=== PATIENT | female | born 1955 | race Caucasian/White ===

== ENCOUNTER 2024-01-15 20:25 | Emergency (ER) | payer MEDICARE, OTHER, SELFPAY ==
[2024-01-15 20:26] VITALS: BP 146/99
[2024-01-15 22:50] VITALS: BP 149/86
--- NOTE | 2024-01-15 22:52 | ED.GENMED ---
History of Present Illness
General
Chief Complaint: Alcohol Problem
Source: patient, family and ambulance crew
Exam Limitations: none
Time Seen by Provider: 01/15/24 20:41
Nursing documentation reviewed up to this point in time: agreed with except
Travel History
Have you had any contact with someone who has COVID-19?: No
Do you have any symptoms of coronavirus? Fever > 100 degrees, chills, cough, shortness of breath, sore throat, loss of taste or smell, muscle aches, or headache?: No
History of Present Illness
History of Present Illness:
Patient with history of chronic alcohol abuse. According to EMS she called 911 after falling. Brought to ED by EMS for eval. Patient is intoxicated but cooperative. Denies any injures, no visible injuries noted. SHe is requesting to go home.
Past History
Past History
ED Past Medical History: Arrthythmia (Paroxysmal atrial fibrillation, SVT), CAD, Cancer (Breast), GERD, HTN, [place], Psychiatric (Anxiety, depression, alcohol abuse, benzodiazepine abuse) and Other (Ulcers, PE, Left shoulder fracture, GI bleeding)
ED Past Surgical History: Appendectomy, Orthopedic (right arm surgery. Left elbow), Tonsilectomy and Other ([place] teeth extraction and left arm surgery, Partial mastectomy for CA)
Social History
Tobacco: Non-smoker
Alcohol: Chronic alcoholic (Wine 3 bottles daily)
Drug: Other (Benzodiazepine abuse)
Personal:
Living: with family (Significant other)
Employment: Not employed
Family History
Family History: Other (MS and hypertension)
Review of Systems
Review of Systems
Allergies reviewed?: Yes
All Other Systems: ROS reviewed and negative except as documented in HPI and ROS
Constitutional: Reports other (intoxicated)
EENT: Reports no symptoms
Respiratory: Reports no symptoms
Cardiac: Reports no symptoms
ABD/GI: Reports no symptoms
: Reports no symptoms
Musculoskeletal: Reports no symptoms
Skin: Reports no symptoms
Neurological: Reports no symptoms
Psychiatric: Reports no symptoms
Phy Exam
General Physical Exam
General Presentation: well appearing and no apparent distress
General age: appears stated age
General Skin: warm and dry
General Habitus: normal
General Mental: alert
Neurological Exam
Neurological Exam: alert, oriented x3, no motor deficits, no sensory deficits, appears intoxicated and normal gait
Valeri Coma Scale
Eye Opening: Spontaneous
Verbal Response: Oriented
Motor Response: Obeys Commands
GCS Total Score: 15
Musculoskeletal Exam
Musculoskeletal Exam: full ROM
Skin Exam
Skin Exam: normal color, warm/dry and no rash
Psychiatric Exam
Psychiatric Exam: normal mood/affect
Scores
Withdrawal Assessment of Alcohol
Withdrawal Assessment Completed?: Not applicable
Course
Orders/Labs/Results
Orders:
Orders
01/15/24 22:48
Clonazepam [Klonopin] 0.5 mg PO NOW STA
01/15/24 22:51
Metoprolol [Lopressor] 100 mg PO NOW STA
Vital Signs
Initial and Last Documented VS:
Initial Vital Signs
Pulse Resp BP Pulse Ox
80 18 146/99 94
01/15/24 20:26 01/15/24 20:26 01/15/24 20:26 01/15/24 20:26
Last Documented Vital Signs
Pulse Resp BP Pulse Ox
84 18 149/86 94
01/15/24 22:50 01/15/24 20:26 01/15/24 22:50 01/15/24 20:26
*Critical Care Note
Total Time (30-74mins, 75-104mins- exclusive of procedures): Not Applicable
Update Note
Update Note:
Patient ambulating with PCT without difficulty. Patients son in law will be taking patient home. Family friend will be staying with patient tonight
ED Attending Note
-
Portions of this chart may have been created with voice recognition software.� Occasional wrong word or��sound alike� substitutions may have occurred due to the inherent limitations of voice recognition software.
Discharge Plan
Departure
Patient Disposition: Home (Routine Discharge)
Date of Disposition: 01/15/24
Time of Disposition: 22:26
Patient with high blood pressure during this ER visit?: No
Condition: Good
Covid-19: Not Applicable
Discharge Problem:
Chronic alcohol abuse
Instructions: Preventing falls in adults, Alcohol Use Disorder (DC)
Prescriptions:
No Action
clonidine HCl 0.2 MG tablet
0.2 mg PO TID
Patient Comments:
pt states she in non compliant with taking medication
clonazepam 0.5 mg tablet
0.5 mg PO TID
anastrozole 1 mg tablet
1 mg PO DAILY
metoprolol tartrate 100 mg Tablet
200 mg PO BID Qty: 30 0RF
Rx Instructions:
new dose
thiamine HCl (vitamin B1) 100 mg Tablet
100 mg PO BID Qty: 60 0RF
pantoprazole 40 mg Tablet,Delayed Release (Dr/Ec)
40 mg PO BID Qty: 60 0RF
folic acid 1 mg Tablet
1 mg PO DAILY Qty: 60 0RF
Referrals:
UNKNOWN - PT DOES,NOT KNOW [Family Provider] -
Interventions
Interventions:
*Risk Screen - Suicide Last Done: 01/15/24 20:28
*General Assessment Last Done: 01/15/24 20:32
*Neglect/Abuse Screening Last Done: 01/15/24 20:28
ED- Fall Risk Assessment Last Done: 01/15/24 20:27
*ED COVID-19 Vaccine History Last Done: 01/15/24 20:31
*Nursing Disposition Last Done: 01/15/24 23:11
ED- Neurological Assessment Last Done: 01/15/24 20:33
ED-Psychological Assessment Last Done: 01/15/24 20:33
Discharge Date and Time
Discharge Date/Time: 01/15/24 23:12
Print Language: ITALIAN
[2024-01-15] MEDS: LOPRESSOR 100 MG PO (22:54)
[2024-01-15] MEDS: KLONOPIN 0.5 MG PO (22:55)
== END 2024-01-15 23:12 | disposition home or self-care (01) ==
LOC: EMR 20:25
PROVIDERS: EMERGENCY PHYSICIAN Emergency Medicine
DX: F10.10 Alcohol abuse, uncomplicated (principal); I48.0 Paroxysmal atrial fibrillation; I47.10 Supraventricular tachycardia, unspecified; I25.10 Atherosclerotic heart disease of native coronary artery without angina pectoris; K21.9 Gastro-esophageal reflux disease without esophagitis; I10 Essential (primary) hypertension; I25.2 Old myocardial infarction; F41.8 Other specified anxiety disorders
CPT/HCPCS: 99282

== ENCOUNTER 2024-07-03 09:37 | Inpatient (IN) | payer MEDICARE, OTHER, SELFPAY ==
[2024-06-29] VITALS (18 sets, daily range): BP systolic 141–178; BP diastolic 78–112; BMI 29.8
--- NOTE | 2024-06-29 16:06 | ED.GENMED ---
History of Present Illness
<Mima Johnson PA-C - Last Filed: 06/29/24 20:53>
General
Chief Complaint: Musculo-Skeletal Complaint
Source: patient and ambulance crew
Time Seen by Provider: 06/29/24 16:02
History of Present Illness
History of Present Illness:
69yoF with a history of atrial fibrillation, hypertension, anemia, and alcohol use disorder presenting via EMS for evaluation after a fall. Patient was getting out of the car <1 hour prior to arrival when she lost her footing and tripped. Patient
reports having a recent patellar fracture and she was just taken out of her brace. Her legs have been weak since then and she believes this is what caused her to fall. She landed on her right side injuring her right shoulder. No reported LOC or head
strike. EMS reports that patient was visibly intoxicated at the scene. She admits to drinking 2 cocktails at lunch today.
Past History
<Mima Johnson PA-C - Last Filed: 06/29/24 20:53>
Past History
ED Past Medical History: Arrthythmia (Paroxysmal atrial fibrillation, SVT), CAD, Cancer (Breast), GERD, HTN, [place], Psychiatric (Anxiety, depression, alcohol abuse, benzodiazepine abuse) and Other (Ulcers, PE, Left shoulder fracture, GI bleeding)
ED Past Surgical History: Appendectomy, Orthopedic (right arm surgery. Left elbow), Tonsilectomy and Other ([place] teeth extraction and left arm surgery, Partial mastectomy for CA)
Social History
Tobacco: Non-smoker
Alcohol: Chronic alcoholic (Wine 3 bottles daily)
Drug: Other (Benzodiazepine abuse)
Personal:
Living: with family (Significant other)
Employment: Not employed
Family History
Family History: Other (MS and hypertension)
Phy Exam
<Mima Johnson PA-C - Last Filed: 06/29/24 20:53>
Physical Exam
Physical Exam:
Dirt noted to face/mouth. Patient intoxicated although alert
General Physical Exam
General Skin: warm and dry
General Habitus: elderly
General Mental: alert
ENT Exam
ENT Exam: normocephalic
Eye Exam
Eye Exam: PERRL
Cardiovascular Exam
Cardiovascular Exam: regular rate/rhythm
Pulmonary Exam
Pulmonary Exam: lungs clear, no respiratory distress, no rales, chest non tender, no crackles and no rhonchi
Gastrointestinal Exam
Gastrointestinal Exam: non tender, soft and non distended
Neurological Exam
Neurological Exam: alert
Valeri Coma Scale
Eye Opening: Spontaneous
Verbal Response: Oriented
Motor Response: Obeys Commands
GCS Total Score: 15
Mental
Mental Status: appears min intoxicated
Musculoskeletal Exam
Musculoskeletal Exam: other (+Deformity to R shoulder. Patient unable to range joint 2/2 pain. 2+ radial pulse. )
Skin Exam
Skin Exam: warm/dry
Psychiatric Exam
Psychiatric Exam: normal mood/affect
Course
<Mima Johnson PA-C - Last Filed: 06/29/24 20:53>
Orders/Labs/Results
Orders:
Orders
06/29/24 16:03
Electrocardiogram (*1) Urgent
Reason for Study: Fatigue / Weakness
CT Cervical Spine W/o Iv Contr Urgent
Comment:
Reason For Exam: Fall, intoxication
EKG- Treatment ONCE
CR Humerus - Right Min 2 View* Urgent
Comment:
Reason For Exam: injury
CR Shoulder, Trauma - Right Urgent
Reason For Exam: injury
06/29/24 16:04
CT Head W/o Iv Contrast Urgent
Comment:
Reason For Exam: Fall, intoxication
06/29/24 17:12
Alcohol Urgent
Complete Blood Count/With Diff Urgent
Comprehensive Metabolic Panel Urgent
Magnesium Urgent
Troponin I Urgent
06/29/24 17:23
HYDROmorphone [Dilaudid] 0.5 mg IV NOW STA
06/29/24 17:24
Add On- LAB Urgent
Tests Added?: magnesium
06/29/24 17:32
Propofol [Diprivan] 100 mg IV NOW STA
06/29/24 17:33
ASA Classification Routine
06/29/24 19:31
Shoulder, Right, Trauma [CR Shoulder, Trauma - Right] Urgent
Comment:
Reason For Exam: R shoulder reduction
06/29/24 20:08
CT Upper Ext W/o Iv Cont Rt Urgent
Comment:
Reason For Exam: R shoulder fracture/dislocation
06/29/24 20:09
HYDROmorphone [Dilaudid] 0.5 mg IV NOW STA
Abnormal Lab Results
06/29/24
17:12
RBC 3.75 L 10^6/uL
(4.20-5.40)
MCV 106.4 H fL
(81.0-99.0)
MCH 36.8 H pg
(27.0-31.0)
RDW 14.7 H %
(11.5-14.5)
Absolute Neuts (auto) 6.9 H 10^3/uL
(1.4-6.5)
Absolute Monos (auto) 0.8 H 10^3/uL
(0.1-0.6)
Lymphocytes % 17.0 L %
(20.5-51.1)
Carbon Dioxide 20 L mmol/L
(22-30)
Glucose 108 H mg/dl
(70-99)
AST 70 H U/L
(14-36)
ALT 68 H U/L
(0-35)
06/29/24 17:12
06/29/24 17:12
Vital Signs
Initial and Last Documented VS:
Initial Vital Signs
Temp Pulse Resp BP Pulse Ox
97.7 F 89 16 155/112 98
06/29/24 16:02 06/29/24 16:02 06/29/24 16:02 06/29/24 16:02 06/29/24 16:02
Last Documented Vital Signs
Temp Pulse Resp BP Pulse Ox
97.9 F 90 16 156/78 97
06/29/24 20:10 06/29/24 20:10 06/29/24 20:10 06/29/24 20:10 06/29/24 20:10
<Don Chauhan, DO - Last Filed: 06/29/24 17:29>
Orders/Labs/Results
Orders:
Orders
06/29/24 16:03
Electrocardiogram (*1) Urgent
Reason for Study: Fatigue / Weakness
CT Cervical Spine W/o Iv Contr Urgent
Comment:
Reason For Exam: Fall, intoxication
EKG- Treatment ONCE
CR Humerus - Right Min 2 View* Urgent
Comment:
Reason For Exam: injury
CR Shoulder, Trauma - Right Urgent
Reason For Exam: injury
06/29/24 16:04
CT Head W/o Iv Contrast Urgent
Comment:
Reason For Exam: Fall, intoxication
06/29/24 17:12
Alcohol Urgent
Complete Blood Count/With Diff Urgent
Comprehensive Metabolic Panel Urgent
Magnesium Urgent
Troponin I Urgent
06/29/24 17:23
HYDROmorphone [Dilaudid] 0.5 mg IV NOW STA
06/29/24 17:24
Add On- LAB Urgent
Tests Added?: magnesium
06/29/24 17:32
Propofol [Diprivan] 100 mg IV NOW STA
06/29/24 17:33
ASA Classification Routine
06/29/24 19:31
Shoulder, Right, Trauma [CR Shoulder, Trauma - Right] Urgent
Comment:
Reason For Exam: R shoulder reduction
06/29/24 20:08
CT Upper Ext W/o Iv Cont Rt Urgent
Comment:
Reason For Exam: R shoulder fracture/dislocation
06/29/24 20:09
HYDROmorphone [Dilaudid] 0.5 mg IV NOW STA
Abnormal Lab Results
06/29/24
17:12
RBC 3.75 L 10^6/uL
(4.20-5.40)
MCV 106.4 H fL
(81.0-99.0)
MCH 36.8 H pg
(27.0-31.0)
RDW 14.7 H %
(11.5-14.5)
Absolute Neuts (auto) 6.9 H 10^3/uL
(1.4-6.5)
Absolute Monos (auto) 0.8 H 10^3/uL
(0.1-0.6)
Lymphocytes % 17.0 L %
(20.5-51.1)
Carbon Dioxide 20 L mmol/L
(22-30)
Glucose 108 H mg/dl
(70-99)
AST 70 H U/L
(14-36)
ALT 68 H U/L
(0-35)
06/29/24 17:12
06/29/24 17:12
Vital Signs
Initial and Last Documented VS:
Initial Vital Signs
Temp Pulse Resp BP Pulse Ox
97.7 F 89 16 155/112 98
06/29/24 16:02 06/29/24 16:02 06/29/24 16:02 06/29/24 16:02 06/29/24 16:02
Last Documented Vital Signs
Temp Pulse Resp BP Pulse Ox
97.9 F 90 16 156/78 97
06/29/24 20:10 06/29/24 20:10 06/29/24 20:10 06/29/24 20:10 06/29/24 20:10
<Romel Mckeon, DO - Last Filed: 06/29/24 19:35>
Orders/Labs/Results
Orders:
Orders
06/29/24 16:03
Electrocardiogram (*1) Urgent
Reason for Study: Fatigue / Weakness
CT Cervical Spine W/o Iv Contr Urgent
Comment:
Reason For Exam: Fall, intoxication
EKG- Treatment ONCE
CR Humerus - Right Min 2 View* Urgent
Comment:
Reason For Exam: injury
CR Shoulder, Trauma - Right Urgent
Reason For Exam: injury
06/29/24 16:04
CT Head W/o Iv Contrast Urgent
Comment:
Reason For Exam: Fall, intoxication
06/29/24 17:12
Alcohol Urgent
Complete Blood Count/With Diff Urgent
Comprehensive Metabolic Panel Urgent
Magnesium Urgent
Troponin I Urgent
06/29/24 17:23
HYDROmorphone [Dilaudid] 0.5 mg IV NOW STA
06/29/24 17:24
Add On- LAB Urgent
Tests Added?: magnesium
06/29/24 17:32
Propofol [Diprivan] 100 mg IV NOW STA
06/29/24 17:33
ASA Classification Routine
06/29/24 19:31
Shoulder, Right, Trauma [CR Shoulder, Trauma - Right] Urgent
Comment:
Reason For Exam: R shoulder reduction
06/29/24 20:08
CT Upper Ext W/o Iv Cont Rt Urgent
Comment:
Reason For Exam: R shoulder fracture/dislocation
06/29/24 20:09
HYDROmorphone [Dilaudid] 0.5 mg IV NOW STA
Abnormal Lab Results
06/29/24
17:12
RBC 3.75 L 10^6/uL
(4.20-5.40)
MCV 106.4 H fL
(81.0-99.0)
MCH 36.8 H pg
(27.0-31.0)
RDW 14.7 H %
(11.5-14.5)
Absolute Neuts (auto) 6.9 H 10^3/uL
(1.4-6.5)
Absolute Monos (auto) 0.8 H 10^3/uL
(0.1-0.6)
Lymphocytes % 17.0 L %
(20.5-51.1)
Carbon Dioxide 20 L mmol/L
(22-30)
Glucose 108 H mg/dl
(70-99)
AST 70 H U/L
(14-36)
ALT 68 H U/L
(0-35)
06/29/24 17:12
06/29/24 17:12
Vital Signs
Initial and Last Documented VS:
Initial Vital Signs
Temp Pulse Resp BP Pulse Ox
97.7 F 89 16 155/112 98
06/29/24 16:02 06/29/24 16:02 06/29/24 16:02 06/29/24 16:02 06/29/24 16:02
Last Documented Vital Signs
Temp Pulse Resp BP Pulse Ox
97.9 F 90 16 156/78 97
06/29/24 20:10 06/29/24 20:10 06/29/24 20:10 06/29/24 20:10 06/29/24 20:10
Procedures
<Romel Mckeon, DO - Last Filed: 06/29/24 19:35>
Moderate Sedation
ASA Risk Score: Class II
Chart and allergies reviewed: Yes
Consent for anesthesia obtained: Yes
Time out completed (validating right patient & procedure): Yes
Moderate Sedation Start Time(when first medication is given): 19:27
History of difficult intubation: No
Airway free of obstruction: Yes
Patient has a gag reflex: Yes
Patient is able to open mouth: Yes
Patient has no dentures: Yes
Patient has no loose teeth: Yes
Medication administered by Provider during Moderate Sedation: IV Propofol (mg)
Total dose administered: 75
Time drug administered: 19:27
Moderate Sedation Procedure End Time: 19:37
Joint/Fracture Reduction
Right Anterior Shoulder:
Indication for procedure:: R shoulder fracture and dislocation
Procedure completed by: Mima Johnson PA-C
Consent form signed: Yes
Joint reduced: with anesthesia sedation
Injury was: closed
Further treatement: needs further treatment
Post reduction exam: stable
Capillary Refill: normal
Peripheral Pulses: radial (right): 2+
<Mima Johnson PA-C - Last Filed: 06/29/24 20:53>
MDM/Problems Addressed
Differential Diagnosis Includes:
69yoF here after a fall getting out of car today. C/o R shoulder pain and deformity noted on exam. VSS. She is intoxicated on arrival although alert. Differential diagnosis includes but is not limited to: fracture, dislocation, mechanical fall,
failure to thrive, dehydration
Initial ED plan: Check cardiac labs, EKG, right shoulder/humerus x-rays, CT head, and CT cervical spine.
MDM: X-rays of R shoulder reveal a comminuted fracture of the proximal R humerus with accompanying anterior/inferior shoulder dislocation. Moderate sedation performed by Dr. Mckeon and joint reduced as above. X-rays show improved alignment although
dislocation persists. X-rays sent to orthopedics (Dr. Tam) who recommends sling and outpatient f/u tomorrow. Patient initially put up for discharge. Patient lives alone and is unable to ambulate currently. She is requesting admission. Patient
also requiring multiple doses of Dilaudid for pain control. Will admit for further management.
<Mima Johnson PA-C - Last Filed: 06/29/24 20:53>
*Critical Care Note
Total Time (30-74mins, 75-104mins- exclusive of procedures): Not Applicable
<Don Chauhan, DO - Last Filed: 06/29/24 17:29>
Update Note
Update Note:
5:30 PM patient tells me she would like to go to rehab but not till Wednesday she has a bed at [facility] she is not interested in speaking to anyone else this evening
<Romel Mckeon, DO - Last Filed: 06/29/24 19:35>
Update Note
Update Note:
5:30 PM patient tells me she would like to go to rehab but not till Wednesday she has a bed at [facility] she is not interested in speaking to anyone else this evening
7:30 PM care of patient was transitioned pending moderate sedation and reduction. Patient tolerated propofol sedation well and the right shoulder was reduced without difficulty.
ED Attending Note
<Mima Johnson PA-C - Last Filed: 06/29/24 20:53>
-
Portions of this chart may have been created with voice recognition software.� Occasional wrong word or��sound alike� substitutions may have occurred due to the inherent limitations of voice recognition software.
<Don Chauhan, DO - Last Filed: 06/29/24 17:29>
ED Attending Note
Patient seen and examined by attending physician: Yes
I performed the substantive portion of visit, reviewed & personally made and approve the management plan that is documented in note by myself or KRISTEN.: Yes
ED Attending Note:
Seen with PA examined independently patient noted for prior visits alcoholic, fell struck her right shoulder looks like a fracture dislocation CT of the head and neck have been ordered, reviewed with patient she will require reduction here
Discharge Plan
Departure
Patient Disposition: Admit
Date of Disposition: 06/29/24
Time of Disposition: 20:43
Presentation/result/management discussed w/ accepting MD/DO: Hospitalist
Patient with high blood pressure during this ER visit?: Yes
Discharge Problem:
Closed fracture dislocation of right shoulder, Fall from slip, trip, or stumble, Alcohol intoxication
Instructions: Upper Arm Fracture ED, MODERATE SEDATION ADULT
Prescriptions:
No Action
clonidine HCl 0.2 MG tablet
0.2 mg PO TID
Patient Comments:
pt states she in non compliant with taking medication
anastrozole 1 mg tablet
1 mg PO DAILY
metoprolol tartrate 100 mg Tablet
200 mg PO BID Qty: 30 0RF
Rx Instructions:
new dose
chlordiazepoxide HCl 5 mg Capsule
5 mg PO TID
Patient Comments:
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
Referrals:
UNKNOWN - PT DOES,NOT KNOW [Family Provider] -
Interventions
Interventions:
*Risk Screen - Suicide Last Done: 06/29/24 16:02
*General Assessment Last Done: 06/29/24 16:02
*Neglect/Abuse Screening Last Done: 06/29/24 16:02
ED- Fall Risk Assessment Last Done: 06/29/24 17:33
*ED COVID-19 Vaccine History Last Done: 06/29/24 17:33
ED-Musculoskeletal Assessment Last Done: 06/29/24 17:33
Discharge Date and Time
Print Language: KAZAKH
[2024-06-29 17:17] LABS: % Basophils 0.4 % (0-2); % Immature Granulocytes 0.3 % (0-0.5); % Monocytes 7.9 % (1.7-9.3); % Neutrophils 71.4 % (42.2-75.2); Absolute Eosinophils 0.3 10^3/uL (0-0.7); Absolute Lymphocytes 1.6 10^3/uL (1.2-3.4); Absolute Monocytes 0.8 10^3/uL (0.1-0.6); Absolute Neutrophils 6.9 10^3/uL (1.4-6.5); Hematocrit 39.9 % (37.0-47.0); Hemoglobin 13.8 g/dL (12.0-16.0); Mean Corp Hgb Conc. 34.6 g/dL (33.0-37.0); Mean Corpuscular Hgb 36.8 pg (27.0-31.0); Mean Corpuscular Volume 106.4 fL (81.0-99.0); Mean Platelet Volume 8.8 fL (7.4-10.4); Nucleated Red Blood Cells % 0 %; Platelet Count 266 10^3/uL (130-400); Red Blood Cell Count 3.75 10^6/uL (4.20-5.40); Red Cell Dist. Width 14.7 % (11.5-14.5); White Blood Cell Count 9.6 10^3/uL (4.8-10.8)
[2024-06-29 17:38] LABS: ALT (SGPT) 68 U/L (0-35); AST (SGOT) 70 U/L (14-36); Albumin 4.4 g/dl (3.5-5.0); Alcohol 190 mg/dl; Alkaline Phosphatase 71 U/L (38-126); Blood Urea Nitrogen 10 mg/dl (7-17); Calcium 9.1 mg/dl (8.4-10.2); Carbon Dioxide 20 mmol/L (22-30); Chloride 101 mmol/L (98-107); Glucose 108 mg/dl (70-99); Magnesium 2.1 mg/dl (1.6-2.3); Potassium 5.1 mmol/L (3.5-5.1); Sodium 137 mmol/L (135-145); Total Bilirubin 0.3 mg/dl (0.2-1.3); Total Protein 6.8 g/dl (6.3-8.2); eGFR > 60.00
[2024-06-29 17:41] LABS: Troponin I < 0.012 ng/ml
[2024-06-29] MEDS: DILAUDID 0.5 MG IV ×2 (18:40→20:38)
[2024-06-29] MEDS: DIPRIVAN 75 MG IV (19:27)
--- NOTE | 2024-06-29 21:26 | HPS.HSE ---
Family Physician
-
Family Physician: NOT KNOW UNKNOWN - PT DOES
Chief Complaint
-
fall
History of Present Illness
69-year-old female past medical history of SVT, PE, CAD, breast cancer, hypertension, GERD, anxiety/depression, alcohol use disorder, benzodiazepine abuse, GI bleeding, presenting for evaluation for fall. She was getting out of the car under 1 hour
prior to arrival when she lost her footing and tripped.
She reports recently having a left patellar fracture in March and recently her brace was removed. Legs have been weak since then which she believes is the reason for her fall. She landed on her right side injuring her right shoulder. Denies loss
of consciousness or head strike. EMS noted that she was visibly intoxicated at the scene. She admits to drinking 2 glasses of wine at lunch today. She has been ambulating with walker. She does feel anxious and a little tremulous especially
because she has not taken her medications today.
She denies smoking.
Medical History
Past Medical History
Past Medical History: Reports Other (SVT, PE, CAD, breast cancer, hypertension, GERD, anxiety/depression, alcohol use disorder, benzodiazepine abuse, GI bleeding,)
Past Surgical History: Reports Other (Appendectomy, Orthopedic (right arm surgery. Left elbow), Tonsilectomy and Other ([place] teeth extraction and left arm surgery, Partial mastectomy for CA))
Social History
Tobacco: Non-smoker
Alcohol: Daily
Drug: None
Family History
Family History: Not pertinent
Allergies / Home Medications
Allergies reflects when Allergies were last updated in [employer].
Home Medications with original date entered in [employer]
Allergy/Medication List:
Allergies
Allergy/AdvReac Type Severity Reaction Status Date / Time
apixaban [From Eliquis] Allergy Rash Verified 06/08/23 01:12
haloperidol lactate Allergy tongue Verified 06/08/23 01:12
[From Haldol] swelled
quetiapine [From Seroquel] AdvReac weakness Verified 06/08/23 01:12
Home Medications
clonidine HCl 0.2 mg tablet 0.2 mg PO TID Blood pressure 04/08/20
anastrozole 1 mg tablet 1 mg PO DAILY Cancer 06/08/23
metoprolol tartrate 100 mg tablet 200 mg (2 x 100 mg) PO BID #30 tabs 06/13/23
chlordiazepoxide HCl 5 mg capsule 5 mg PO TID 06/29/24
Review of Systems
-
History Source: Patient
A 12 point ROS was completed and negative except as noted: Yes
Constitutional: Reports No Symptoms
EENT: Reports No Symptoms
Respiratory: Reports No Symptoms
Cardiac: Reports No Symptoms
Abdomen/GI: Reports No Symptoms
: Reports No Symptoms
Musculoskeletal: Reports See HPI
Skin: Reports No Symptoms
Neurological: Reports No Symptoms
Endocrine: Reports No Symptoms
Hematologic/Lymphatic: Reports No Symptoms
Psych: Reports No Symptoms
Physical Exam
Vital Signs
Vital Signs
Temp Pulse Resp BP Pulse Ox
97.9 F 90 16 156/78 97
06/29/24 20:10 06/29/24 20:10 06/29/24 20:10 06/29/24 20:10 06/29/24 20:10
Physical Exam
General: Well Developed, Well Nourished and No Apparent Distress
HEENT: NormoCephalic, Moist mucous membranes and Atraumatic
Respiratory: Clear
Cardiac: S1/S2 and Regular Rhythm; No Murmur or Rub
GI: Soft, Non Tender, Non Distended and Normal Bowel Sounds; No Organomegaly
Rectal: Deferred by Provider
Musculoskeletal: No Clubbing, No Cyanosis and No Edema
Skin: No Rash
Neuro: Nonfocal/grossly intact
Laboratory Results
-
06/29/24 17:12
06/29/24 17:12
Laboratory Results
Total Bilirubin 0.3 mg/dl (0.2-1.3) 06/29/24 17:12
AST 70 U/L (14-36) H 06/29/24 17:12
ALT 68 U/L (0-35) H 06/29/24 17:12
Alkaline Phosphatase 71 U/L (38-126) 06/29/24 17:12
Troponin I < 0.012 ng/ml 06/29/24 17:12
Data Reviewed
-
Lab Data: Labs Reviewed by me
Old Records: Reviewed
Impression/Plan
-
IMPRESSION:
PLAN:
# Right shoulder dislocation/proximal humerus fracture
-Shoulder x-ray shows comminuted fracture/dislocation of the proximal right humerus
-CT pending
-Reduction attempted with some improvement but joint still dislocated
-Ortho consulted and recommended outpatient follow-up however patient unable to ambulate and requires multiple doses of Dilaudid
-Continue Dilaudid but increase to 1 mg every 4, Tylenol
# Alcohol withdrawal
# Alcohol use disorder
# History of benzodiazepine abuse
-Alcohol level 190
-Thiamine and folate
-Alcohol withdrawal protocol
-Continue chlordiazepoxide, clonidine
# Transaminitis secondary to alcohol use
-Continue to monitor
History of SVT
-Continue metoprolol
History of PE
CAD
Breast cancer
-Continue anastrozole
Essential hypertension
GERD
Anxiety/depression
History of GI bleeding
Full code
DVT prophylaxis�heparin
Regular diet
[2024-06-29] MEDS: LOPRESSOR 200 MG PO (21:33)
[2024-06-29] MEDS: CATAPRES 0.2 MG PO (21:34)
--- NOTE | 2024-06-29 23:15 | PTCARENOTE ---
Pt arrived onto floor @2315. Pt AAOx3 and a pin puller to the bed. Pt with no complaints of SOB at this time, complaining of 8/10 pain in R arm. PRN Dilaudid administered. Pt oriented to room and call posey; will continue to monitor.
[2024-06-29] MEDS: DILAUDID 1 MG IV (23:41)
[2024-06-29] MEDS: NSS 1000 IV (23:42)
[2024-06-29] MEDS: LIBRIUM 5 MG PO (23:53)
[2024-06-30] VITALS (7 sets, daily range): BP systolic 99–130; BP diastolic 58–79; O2SAT 94
[2024-06-30] MEDS: ZOFRAN 4 MG IV (01:54)
[2024-06-30] MEDS: DILAUDID 1 MG IV (05:12)
--- NOTE | 2024-06-30 06:58 | CON.ORTHO ---
Consultation
-
Date/Time Consultation Requested: 06/29/2024 @ 23:12
Date/Time Consultation Performed: 06/30/2024 @ 6:40 AM
Requesting Provider: Abrahan Webb MD
Performing Provider: Tyrone Paul PA-C for Dr. Jorge Tam
Reason for Consultation: Right Proximal Humerus Fracture/Dislocation
Consultation - Orthopedics
History
HPIL The patient is a 69-year-old [id number] female with a past medical history significant for SVT, PE, CAD, breast cancer, hypertension, GERD, anxiety/depression, alcohol use disorder, benzodiazepine abuse, GI bleeding, admitted to ""[facility] following a mechanical fall yesterday evening. Patient reports that she was getting out of the car approximately 1 hour prior to her arrival when she lost her balance/footing, tripped and fell onto her right shoulder. The
patient has been rehabbing from a left patellar fracture which she sustained this past March. She was recently seen in our office as an outpatient and was transitioned from knee immobilizer to post-op range of motion brace with initiation of
outpatient physical therapy for progressive range of motion. She reports that her legs have been weak since her patella fracture, which she feels as though contributed to her fall. She denies any loss of consciousness or head strike. Per H&P, EMS
noted that she was visibly intoxicated at the scene. X-rays were obtained in the ED, which revealed a comminuted fracture/dislocation of the right proximal humerus. She denies any paresthesias. Orthopedics has been consulted for further
management.
PAST MEDICAL HISTORY: SVT, PE, CAD, breast cancer, hypertension, GERD, anxiety/depression, alcohol use disorder, benzodiazepine abuse, GI bleeding.
PAST SURGICAL HISTORY: Appendectomy, tonsillectomy, partial mastectomy for CA, Orthopedic (right arm surgery, left elbow surgery).
SOCIAL HISTORY: Denies tobacco use. Daily EtOH use.
FAMILY HISTORY: Non-contributory.
REVIEW OF SYSTEMS: 12-point review of systems obtained and negative except those mentioned in the HPI.
Allergies / Home Medications
Allergy/AdvReac Type Severity Reaction Status Date / Time
apixaban [From Eliquis] Allergy Rash Verified 06/08/23 01:12
haloperidol lactate Allergy tongue Verified 06/08/23 01:12
[From Haldol] swelled
quetiapine [From Seroquel] AdvReac weakness Verified 06/08/23 01:12
�Medication �Instructions �Recorded
clonidine HCl 0.2 mg tablet 0.2 mg PO TID Blood pressure 04/08/20
anastrozole 1 mg tablet 1 mg PO DAILY Cancer 06/08/23
metoprolol tartrate 100 mg tablet 200 mg (2 x 100 mg) PO BID #30 tabs 06/13/23
chlordiazepoxide HCl 5 mg capsule 5 mg PO TID 06/29/24
Vital Signs / Lab Results
Temp Pulse Resp BP Pulse Ox
98.1 F 82 18 119/78 94
06/30/24 02:55 06/30/24 02:55 06/30/24 02:55 06/30/24 02:55 06/30/24 02:55
RADIOGRAPHIC FINDINGS:
CR Shoulder, Trauma - RIGHT, CR Humerus - RIGHT Min 2 View* was obtained at [facility] on 06/29/2024 and was made available for my review today. Findings and Impression: There is a comminuted fracture of the head/neck of the proximal right
humerus with accompanying anterior and inferior dislocation with respect to the glenoid portion of the scapula.
CR Shoulder, Trauma - RIGHT (after attempted reduction) was obtained at [facility] on 06/29/2024 and was made available for my review today. Findings and Impression: 2 portable views of the right shoulder again reveal a comminuted
fracture/dislocation of the proximal right humerus with respect to the glenoid portion of the scapula. Although there is some decreased splaying of several small fracture fragments, continued anterior and inferior dislocation of the proximal right
humerus with respect to the glenoid is noted.
CT Upper Ext W/o Iv Cont RT was also obtained at [facility] on 06/29/2024 and was made available for my review today. Report is not yet available. CT Scan was reviewed with Dr. Shin. There is a comminuted fracture of the head/neck of the
proximal humerus. I do not appreciate any dislocation on CT scan; humeral head appears to be appropriately positioned in relation to the glenoid.
PHYSICAL EXAM:
General: Well-developed, well-nourished and in no apparent distress.
HEENT: NCAT, sclerae anicteric, normal hearing.
Heart: No JVD.
Lungs: Normal work of breathing on room air.
MSK: Directed exam of the right upper extremity, with attention to the right shoulder, is limited secondary to fracture status. Skin intact. There is tenderness to palpation over the right proximal humerus. No obvious deformity appreciated.
Sling intact. Range of motion deferred secondary to known fracture. Able to wiggle fingers. Sensation is intact to light touch over the axillary nerve distribution and capillary refill is less than 2 seconds.
Assessment / Plan
ASSESSMENT: 69-year-old [id number] female with a comminuted fracture of the head/neck of the right proximal humerus. Reviewing CT scan, humeral head appears to be appropriately positioned in relation to the glenoid.
PLAN:
1) Thankfully, at this time, her fracture is amenable to non-operative treatment. X-rays and CT scan reviewed with Dr. Shin.
2) Continue with sling immobilization at all times, NWB to RUE.
3) Pain control per primary team.
4) Recommend serial radiographs in 1 week as outpatient to ensure maintained alignment/position.
5) Orthopedic surgery will sign off at this time. Please reengage with any further questions or concerns.
[2024-06-30 07:25] LABS: ALT (SGPT) 48 U/L (0-35); AST (SGOT) 41 U/L (14-36); Albumin 3.2 g/dl (3.5-5.0); Alkaline Phosphatase 47 U/L (38-126); Blood Urea Nitrogen 13 mg/dl (7-17); Calcium 8.2 mg/dl (8.4-10.2); Carbon Dioxide 21 mmol/L (22-30); Chloride 105 mmol/L (98-107); Estimated Creatinine Clearance 89 ml/min; Glucose 108 mg/dl (70-99); Potassium 4.8 mmol/L (3.5-5.1); Sodium 134 mmol/L (135-145); Total Bilirubin 0.9 mg/dl (0.2-1.3); Total Protein 5.5 g/dl (6.3-8.2); eGFR > 60.00
[2024-06-30] MEDS: THIAMINE INJECTION 200 MG IV ×2 (08:39→20:44)
[2024-06-30] MEDS: LIBRIUM 5 MG PO ×3 (08:39→22:12)
[2024-06-30] MEDS: ARIMIDEX 1 MG PO (08:40)
[2024-06-30] MEDS: CATAPRES 0.2 MG PO ×3 (08:40→22:12)
[2024-06-30] MEDS: ROXICODONE 5 MG PO ×3 (08:41→22:12)
[2024-06-30] MEDS: HEPARIN 5000 UNITS SC ×3 (08:43→23:56)
[2024-06-30] MEDS: FOLVITE 1 MG PO (08:43)
[2024-06-30] MEDS: LOPRESSOR 200 MG PO ×2 (08:44→20:40)
[2024-06-30 09:17] LABS: % Basophils 0.3 % (0-2); % Eosinophils 2.4 % (0-6); % Immature Granulocytes 0.3 % (0-0.5); % Monocytes 12.3 % (1.7-9.3); % Neutrophils 60.7 % (42.2-75.2); Absolute Eosinophils 0.1 10^3/uL (0-0.7); Absolute Lymphocytes 1.4 10^3/uL (1.2-3.4); Absolute Monocytes 0.7 10^3/uL (0.1-0.6); Absolute Neutrophils 3.6 10^3/uL (1.4-6.5); Hematocrit 33.1 % (37.0-47.0); Hemoglobin 10.9 g/dL (12.0-16.0); Mean Corp Hgb Conc. 32.9 g/dL (33.0-37.0); Mean Corpuscular Hgb 37.2 pg (27.0-31.0); Mean Platelet Volume 9.1 fL (7.4-10.4); Nucleated Red Blood Cells % 0 %; Platelet Count 228 10^3/uL (130-400); Red Blood Cell Count 2.93 10^6/uL (4.20-5.40); Red Cell Dist. Width 14.9 % (11.5-14.5); White Blood Cell Count 5.9 10^3/uL (4.8-10.8)
--- NOTE | 2024-06-30 10:25 | W.PN.HOSP.TC ---
Today's Communication/Plan
-
DC to rehab
Assessment / Plan
Assessment / Plan
69yo F with PMHX of breast CA, HTN, alcohol abuse came after she lost her balance and fell. found comminuted fracture of the head/neck of the right proximal humerus that Ortho managing conservatively.
A/P:
#Fall without LOC with comminuted fracture of the head/neck of the right proximal humerus
Ortho - sling and pain mgmt
Repeat XR in 1 week
PT/OT
#Alcohol abuse with mild withdrawal
Placed on librium
watch for DT
MSAS with ativan
Thiamine/FOlate
Counseled on abstinence
#Transaminitis
minimal 2/2 alcohol abuse
follow LFT
recheck hepC serology (full panel neg in 2020)
#Essential HTN
#SVT
cont home meds
#macrocytic anemia
2/2 alcohol abuse
check B12, folate
DVt ppx hep
full code
I have spent at least 59min reviewing chart, test results, communication with consultants and direct patient care
Anticipated Discharge: Within 24 hours
Subjective/Interval History
-
Date of Service: June 30, 2024
Objective Data
-
Labs:
Laboratory Results
06/30/24 06/30/24
06:42 08:02
WBC Cancelled 5.9
Hgb Cancelled 10.9 L D
Hct Cancelled 33.1 L
Plt Count Cancelled 228
Sodium 134 L
Potassium 4.8
Chloride 105
Carbon Dioxide 21 L
BUN 13
Creatinine 0.6
Glucose 108 H
Calcium 8.2 L
Total Bilirubin 0.9
AST 41 H
ALT 48 H
Alkaline Phosphatase 47
Vital Signs:
Vital Signs
Temp Pulse Resp BP Pulse Ox
99 F 83 19 123/79 94
06/30/24 07:00 06/30/24 07:00 06/30/24 07:00 06/30/24 07:00 06/30/24 07:00
I&O
06/29/24 06/30/24 07/01/24
06:59 06:59 06:59
Intake Total 600 / 600
Balance 600 / 600
Review of Systems
-
History Source: Patient
All other systems: Reviewed and negative
Physical Exam
-
General: No Apparent Distress
HEENT: Normocephalic
Respiratory: Clear to Auscultation
Cardiac: Regular Rhythm
Musculoskeletal: Other (RUE in sling)
Neuro: Awake, Alert, Oriented and AO x 3
Psych: Calm
--- NOTE | 2024-06-30 11:29 | CM ---
Patient seen bedside, initial assessment completed. Patient resides alone in a multiple story home, first floor set up, two steps to enter. Patient reports she has a rolling walker and commode at home. Patient reports she has three children who are
not local but come check on her, has good support from a neighbor, Manny. Patient denies VN, reports history at [facility] in [place] after discharged from [facility].
CM discussed PT recommendation of SNF, patient reports she will never go back to a SNF. Patient does not have a PCP, is interested in a list of local PCP's. CM cannot set up VN services as patient is not current with a PCP. Patient aware that once
PCP set up, can order VN services. Patient reports she can have a friend stay with her if needed. [facility] in [place]. CM reviewed [facility] form, verbally reviewed, placed in chart, patient provided with copy. CM will continue to
follow for all discharge planning needs.
Plan; patient refusing SNF, will provide list of PCPS.
[2024-06-30] MEDS: MORPHINE SULFATE 2 MG IV ×2 (11:31→23:57)
[2024-06-30] MEDS: NSS IV (12:54)
[2024-06-30] MEDS: ZYRTEC 5 MG PO (21:01)
[2024-07-01] MEDS: ROXICODONE 5 MG PO ×3 (02:05→22:51)
[2024-07-01 03:00] VITALS: BP 130/70
[2024-07-01 07:30] VITALS: BP 157/97
[2024-07-01] MEDS: FOLVITE 1 MG PO (08:38)
[2024-07-01] MEDS: CATAPRES 0.2 MG PO ×3 (08:38→21:51)
[2024-07-01] MEDS: LIBRIUM 5 MG PO ×3 (08:38→21:51)
[2024-07-01] MEDS: LOPRESSOR 200 MG PO ×2 (08:39→19:27)
[2024-07-01] MEDS: ARIMIDEX 1 MG PO (08:39)
[2024-07-01] MEDS: THIAMINE INJECTION 200 MG IV ×2 (08:40→19:28)
[2024-07-01] MEDS: HEPARIN SC (08:41)
[2024-07-01] MEDS: MORPHINE SULFATE 2 MG IV (09:53)
[2024-07-01] MEDS: HEPARIN 5000 UNITS SC ×2 (09:55→17:59)
[2024-07-01 11:30] VITALS: BP 111/69
--- NOTE | 2024-07-01 12:13 | W.PN.HOSP.TC ---
Today's Communication/Plan
-
switch to ultram
Check B12, folate, HepC Ab
CM for placement
Assessment / Plan
Assessment / Plan
69yo F with PMHX of breast CA, HTN, alcohol abuse came after she lost her balance and fell. found comminuted fracture of the head/neck of the right proximal humerus that Ortho managing conservatively. Advised to repeat XR R arm in 1 week. PT/OT
recommended rehab - CM working on placement
A/P:
#Fall without LOC with comminuted fracture of the head/neck of the right proximal humerus
Ortho - sling and pain mgmt
Repeat XR in 1 week
PT/OT
#Alcohol abuse with mild withdrawal
Placed on librium by hr psychiatrist
watch for DT
MSAS with ativan
Thiamine/FOlate
Counseled on abstinence
#Transaminitis
minimal 2/2 alcohol abuse
follow LFT
recheck hepC serology (full panel neg in 2020)
#Essential HTN
#SVT
cont home meds
#macrocytic anemia
2/2 alcohol abuse
check B12, folate
DVt ppx hep
full code
I have spent at least 39min reviewing chart, test results, communication with consultants and direct patient care
Anticipated Discharge: Within 24 hours
Subjective/Interval History
-
Date of Service: July 01, 2024
Objective Data
-
Vital Signs:
Vital Signs
Temp Pulse Resp BP Pulse Ox
98.5 F 91 16 111/69 92
07/01/24 11:30 07/01/24 11:30 07/01/24 11:30 07/01/24 11:30 07/01/24 11:30
I&O
06/30/24 07/01/24 07/02/24
06:59 06:59 06:59
Intake Total 600 / 600 960 / 960 240 / 240
Balance 600 / 600 960 / 960 240 / 240
Review of Systems
-
History Source: Patient
All other systems: Reviewed and negative
Physical Exam
-
General: No Apparent Distress
Neuro: Awake, Alert, Oriented and AO x 3
Psych: Calm
[2024-07-01 13:54] LABS: Folate 3.8 ng/ml (2.76-20); Vitamin B12 216 pg/ml (239-931)
[2024-07-01 15:15] VITALS: BP 145/89
[2024-07-01] MEDS: CYANOCOBALAMIN IM (15:40)
[2024-07-01] MEDS: ULTRAM 50 MG PO (17:52)
[2024-07-01 19:00] VITALS: BP 152/100
[2024-07-01] MEDS: TYLENOL 650 MG PO (19:27)
[2024-07-01] MEDS: TYLENOL 325 MG PO (21:51)
[2024-07-01 23:00] VITALS: BP 109/61
[2024-07-02] MEDS: HEPARIN 5000 UNITS SC ×3 (02:16→17:46)
[2024-07-02] MEDS: ULTRAM 50 MG PO (02:19)
[2024-07-02] MEDS: TYLENOL 650 MG PO (02:19)
[2024-07-02 03:59] VITALS: BP 118/70
[2024-07-02 07:50] VITALS: BP 149/91
--- NOTE | 2024-07-02 08:22 | CM ---
Late entryn from 07/01
Patient was agreeable to SNF
Discussed options. Referrals entered in [facility] for [facility]
PLAN: SNF, pending bed availability
[2024-07-02] MEDS: ZOFRAN 4 MG IV (08:37)
--- NOTE | 2024-07-02 08:37 | W.PN.HOSP.TC ---
Today's Communication/Plan
-
switch to oxycodone
Patient needs assistance to ambulate, lives alone, unsafe for d/c home, however has unrealistic insight onto her condition, daily changing her opinion if she is agreeable for rehab
Assessment / Plan
Assessment / Plan
69yo F with PMHX of breast CA, HTN, alcohol abuse came after she lost her balance and fell. found comminuted fracture of the head/neck of the right proximal humerus that Ortho managing conservatively. Advised to repeat XR R arm in 1 week. PT/OT
recommended rehab - CM working on placement
A/P:
#Fall without LOC with comminuted fracture of the head/neck of the right proximal humerus
Ortho - sling and pain mgmt
Repeat XR in 1 week
PT/OT
#Alcohol abuse with mild withdrawal
Placed on librium by hr psychiatrist
watch for DT
MSAS with ativan
Thiamine/FOlate
Counseled on abstinence
#Transaminitis
minimal 2/2 alcohol abuse
follow LFT
recheck hepC serology (full panel neg in 2020)
#Essential HTN
#SVT
cont home meds
#macrocytic anemia
2/2 alcohol abuse
check B12, folate
DVt ppx hep
full code
I have spent at least 39min reviewing chart, test results, communication with consultants and direct patient care
Anticipated Discharge: Within 24 hours
Subjective/Interval History
-
Date of Service: July 02, 2024
Objective Data
-
Vital Signs:
Vital Signs
Temp Pulse Resp BP Pulse Ox
98.7 F 93 20 149/91 95
07/02/24 07:50 07/02/24 07:50 07/02/24 07:50 07/02/24 07:50 07/02/24 07:50
I&O
07/01/24 07/02/24 07/03/24
06:59 06:59 06:59
Intake Total 960 / 960 720 / 720 240 / 240
Balance 960 / 960 720 / 720 240 / 240
Review of Systems
-
History Source: Patient
All other systems: Reviewed and negative
Physical Exam
-
General: No Apparent Distress
HEENT: Normocephalic, Atraumatic and Moist Mucous Membranes
Respiratory: Clear to Auscultation
GI: Soft, Nontender and Nondistended
Genito-urinary: No Costovertebral Tender
Musculoskeletal: No Clubbing, No Cyanosis and No Edema
Psych: Calm
[2024-07-02] MEDS: ROXICODONE 5 MG PO ×3 (08:38→21:24)
[2024-07-02] MEDS: LOPRESSOR 200 MG PO ×2 (08:38→20:33)
[2024-07-02] MEDS: ARIMIDEX 1 MG PO (08:39)
[2024-07-02] MEDS: FOLVITE 1 MG PO (08:40)
[2024-07-02] MEDS: THIAMINE INJECTION 200 MG IV ×2 (08:41→20:34)
[2024-07-02] MEDS: CYANOCOBALAMIN 1000 MCG IM (08:41)
[2024-07-02] MEDS: LIBRIUM 5 MG PO ×3 (08:41→21:19)
[2024-07-02] MEDS: CATAPRES 0.2 MG PO ×3 (08:42→21:19)
[2024-07-02 11:07] VITALS: BP 92/55
--- NOTE | 2024-07-02 13:05 | CHAP ---
Guillermina is a bit discouraged but still smiling, as she contemplates her situation and next steps. She was glad to be reminded of the Lord's presence with her, and His good care. Emotional and spiritual support provided.
[2024-07-02 15:37] VITALS: BP 117/70
[2024-07-02 20:48] VITALS: BP 134/64
[2024-07-02 23:25] VITALS: BP 148/95
[2024-07-03] VITALS (7 sets, daily range): BP systolic 89–167; BP diastolic 59–88; PULSE 86
[2024-07-03] MEDS: HEPARIN SC (02:00)
[2024-07-03] MEDS: ROXICODONE 5 MG PO ×4 (02:06→18:28)
[2024-07-03] MEDS: LIBRIUM 5 MG PO ×3 (09:15→21:32)
[2024-07-03] MEDS: VITAMIN B1 100 MG PO ×2 (09:15→19:56)
[2024-07-03] MEDS: ARIMIDEX 1 MG PO (09:15)
[2024-07-03] MEDS: CATAPRES 0.2 MG PO ×2 (09:15→21:36)
[2024-07-03] MEDS: HEPARIN 5000 UNITS SC ×2 (09:16→16:02)
[2024-07-03] MEDS: FOLVITE 1 MG PO (09:16)
[2024-07-03] MEDS: LOPRESSOR 200 MG PO ×2 (09:16→19:56)
[2024-07-03] MEDS: CYANOCOBALAMIN 1000 MCG IM (09:16)
[2024-07-03] MEDS: ZOFRAN 4 MG IV (10:06)
--- NOTE | 2024-07-03 10:18 | CM ---
CM reviewed chart, patient seen bedside. Patient agreeable to rehab, referrals sent to [facility]. CM will continue to follow for all discharge planning needs.
Plan; SNF pending accepting facility.
--- NOTE | 2024-07-03 14:43 | W.PN.HOSP.TC ---
Today's Communication/Plan
-
dispo planing
b12 supp
Assessment / Plan
Assessment / Plan
69yo F with PMHX of breast CA, HTN, alcohol abuse came after she lost her balance and fell. found comminuted fracture of the head/neck of the right proximal humerus that Ortho managing conservatively. Advised to repeat XR R arm in 1 week. PT/OT
recommended rehab - CM working on placement
A/P:
#Fall without LOC with comminuted fracture of the head/neck of the right proximal humerus
Ortho - Continue with sling immobilization at all times, NWB to RUE; non operative management
Repeat XR in 1 week
PT/OT
F/u ortho outpatient
#Alcohol abuse with mild withdrawal
Placed on librium by hr psychiatrist
watch for DT
MSAS with ativan
Thiamine/FOlate
Counseled on abstinence
#Transaminitis
minimal 2/2 alcohol abuse
follow LFT
recheck hepC serology (full panel neg in 2020)
#Hyponatremia
-mild
-ctm
#Essential HTN
#SVT
cont home meds
#macrocytic anemia
2/2 alcohol abuse
check B12 - low
-start supplementation
DVt ppx hep
full code
Anticipated Discharge: Within 24 hours
Subjective/Interval History
-
Date of Service: July 03, 2024
no acute events
Objective Data
-
Vital Signs:
Vital Signs
Temp Pulse Resp BP Pulse Ox
98.5 F 82 18 89/59 98
07/03/24 11:44 07/03/24 11:44 07/03/24 11:44 07/03/24 11:44 07/03/24 11:44
I&O
07/02/24 07/03/24 07/04/24
06:59 06:59 06:59
Intake Total 720 / 720 1800 / 1800
Output Total 100 / 100
Balance 720 / 720 1700 / 1700
Review of Systems
-
History Source: Patient
All other systems: Not reviewed unless documented
Physical Exam
-
General: No Apparent Distress
HEENT: Normocephalic, Atraumatic and Moist Mucous Membranes
Respiratory: Clear to Auscultation
GI: Soft, Nontender and Nondistended
Genito-urinary: No Costovertebral Tender
Musculoskeletal: No Clubbing, No Cyanosis and No Edema
Psych: Calm
Data Reviewed
-
Diagnostic Radiology: Image personally visualized and interpreted and Report Reviewed by me
CT Scan: Image personally visualized and interpreted and Report Reviewed by me
Labs: Labs Reviewed by me
[2024-07-03] MEDS: CATAPRES PO (15:23)
[2024-07-03 15:45] LABS: Hepatitis C Antibody Negative (Negative)
[2024-07-03] MEDS: ATIVAN 0.5 MG PO ×2 (16:02→19:56)
--- NOTE | 2024-07-03 18:35 | PTCARENOTE ---
Pt very concerned about her RT shoulder being 'more' hurt. Dr. Cross, cross coverage hospitalist made aware. XRAY to be ordered.
[2024-07-04] VITALS (8 sets, daily range): BP systolic 93–177; BP diastolic 65–97; PULSE 84–91; O2SAT 91–96
[2024-07-04] MEDS: HEPARIN SC (00:57)
[2024-07-04] MEDS: ROXICODONE 5 MG PO ×5 (04:51→23:33)
[2024-07-04] MEDS: CATAPRES 0.2 MG PO ×3 (09:00→22:23)
[2024-07-04] MEDS: FOLVITE 1 MG PO (09:01)
[2024-07-04] MEDS: LIBRIUM 5 MG PO ×3 (09:01→22:23)
[2024-07-04] MEDS: ARIMIDEX 1 MG PO (09:01)
[2024-07-04] MEDS: CYANOCOBALAMIN 1000 MCG IM (09:01)
[2024-07-04] MEDS: HEPARIN 5000 UNITS SC ×3 (09:02→23:32)
[2024-07-04] MEDS: LOPRESSOR 200 MG PO ×2 (09:02→19:50)
[2024-07-04] MEDS: VITAMIN B1 100 MG PO ×2 (09:02→19:50)
--- NOTE | 2024-07-04 11:24 | CM ---
CM reviewed chart, met with patient bedside, discussed [facility] a bed /when medically stable. Patient will speak with her friend and make a decision. CM will update facilities on discharge status. CM will
continue to follow for all discharge planning needs.
Plan; SNF- [facility], patient will discuss with friend.
[2024-07-04 11:34] LABS: ALT (SGPT) 38 U/L (0-35); AST (SGOT) 36 U/L (14-36); Albumin 4.2 g/dl (3.5-5.0); Alkaline Phosphatase 67 U/L (38-126); Blood Urea Nitrogen 9 mg/dl (7-17); Calcium 9.4 mg/dl (8.4-10.2); Carbon Dioxide 24 mmol/L (22-30); Chloride 98 mmol/L (98-107); Estimated Creatinine Clearance 76 ml/min; Glucose 112 mg/dl (70-99); Potassium 4.4 mmol/L (3.5-5.1); Sodium 136 mmol/L (135-145); Total Bilirubin 1.5 mg/dl (0.2-1.3); Total Protein 6.8 g/dl (6.3-8.2); eGFR > 60.00
[2024-07-04 12:02] LABS: Hematocrit 34.6 % (37.0-47.0); Hemoglobin 11.8 g/dL (12.0-16.0); Mean Corp Hgb Conc. 34.1 g/dL (33.0-37.0); Mean Corpuscular Hgb 36.5 pg (27.0-31.0); Mean Corpuscular Volume 107.1 fL (81.0-99.0); Mean Platelet Volume 10.8 fL (7.4-10.4); Platelet Count 185 10^3/uL (130-400); Red Blood Cell Count 3.23 10^6/uL (4.20-5.40); Red Cell Dist. Width 14.5 % (11.5-14.5); White Blood Cell Count 5.5 10^3/uL (4.8-10.8)
--- NOTE | 2024-07-04 14:12 | W.PN.HOSP.TC ---
Today's Communication/Plan
-
dispo planing
b12 supp
Assessment / Plan
Assessment / Plan
69yo F with PMHX of breast CA, HTN, alcohol abuse came after she lost her balance and fell. found comminuted fracture of the head/neck of the right proximal humerus that Ortho managing conservatively. Advised to repeat XR R arm in 1 week. PT/OT
recommended rehab - CM working on placement
A/P:
#Fall without LOC with comminuted fracture of the head/neck of the right proximal humerus
Ortho - Continue with sling immobilization at all times, NWB to RUE; non operative management
Repeat XR in 1 week
PT/OT
F/u ortho outpatient
#Alcohol abuse with mild withdrawal
Placed on librium by hr psychiatrist
watch for DT
MSAS with ativan
Thiamine/FOlate
Counseled on abstinence
#Transaminitis
minimal 2/2 alcohol abuse
follow LFT
recheck hepC serology (full panel neg in 2020)
#Hyponatremia
-mild
-ctm
#Essential HTN
#SVT
cont home meds
#macrocytic anemia
2/2 alcohol abuse
check B12 - low
-start supplementation
DVt ppx hep
full code
Anticipated Discharge: Within 24 hours
Subjective/Interval History
-
Date of Service: July 04, 2024
No acute events
Objective Data
-
Labs:
Laboratory Results
07/04/24
10:46
WBC 5.5
Hgb 11.8 L
Hct 34.6 L
Plt Count 185
Sodium 136
Potassium 4.4
Chloride 98
Carbon Dioxide 24
BUN 9
Creatinine 0.7
Glucose 112 H
Calcium 9.4
Total Bilirubin 1.5 H
AST 36
ALT 38 H
Alkaline Phosphatase 67
Vital Signs:
Vital Signs
Temp Pulse Resp BP Pulse Ox
97.6 F 80 18 93/65 93
07/04/24 11:21 07/04/24 11:21 07/04/24 11:21 07/04/24 11:21 07/04/24 11:21
I&O
07/03/24 07/04/24 07/05/24
06:59 06:59 06:59
Intake Total 1800 / 1800 1560 / 1560
Output Total 100 / 100 100 / 100
Balance 1700 / 1700 1460 / 1460
Review of Systems
-
History Source: Patient
All other systems: Not reviewed unless documented
Physical Exam
-
General: No Apparent Distress
HEENT: Normocephalic, Atraumatic and Moist Mucous Membranes
Respiratory: Clear to Auscultation
GI: Soft, Nontender and Nondistended
Genito-urinary: No Costovertebral Tender
Musculoskeletal: No Clubbing, No Cyanosis and No Edema
Psych: Calm
Data Reviewed
-
Diagnostic Radiology: Image personally visualized and interpreted and Report Reviewed by me
CT Scan: Image personally visualized and interpreted and Report Reviewed by me
Labs: Labs Reviewed by me
[2024-07-04] MEDS: ATIVAN 0.5 MG PO ×3 (14:17→23:33)
[2024-07-05] VITALS (8 sets, daily range): BP systolic 78–132; BP diastolic 54–88; PULSE 81
[2024-07-05] MEDS: LIBRIUM 5 MG PO ×3 (08:23→21:30)
[2024-07-05] MEDS: FOLVITE 1 MG PO (08:23)
[2024-07-05] MEDS: HEPARIN 5000 UNITS SC ×2 (08:23→17:36)
[2024-07-05] MEDS: CYANOCOBALAMIN 1000 MCG IM (08:23)
[2024-07-05] MEDS: VITAMIN B1 100 MG PO ×2 (08:23→20:20)
[2024-07-05] MEDS: ARIMIDEX 1 MG PO (08:23)
[2024-07-05] MEDS: CATAPRES 0.2 MG PO ×3 (08:25→21:29)
[2024-07-05] MEDS: LOPRESSOR 200 MG PO ×2 (08:25→20:20)
[2024-07-05] MEDS: ROXICODONE 5 MG PO ×4 (08:28→21:29)
[2024-07-05 08:56] LABS: Hematocrit 31.6 % (37.0-47.0); Hemoglobin 10.5 g/dL (12.0-16.0); Mean Corp Hgb Conc. 33.2 g/dL (33.0-37.0); Mean Corpuscular Hgb 36.7 pg (27.0-31.0); Mean Corpuscular Volume 110.5 fL (81.0-99.0); Mean Platelet Volume 8.9 fL (7.4-10.4); Platelet Count 259 10^3/uL (130-400); Red Blood Cell Count 2.86 10^6/uL (4.20-5.40); Red Cell Dist. Width 14.9 % (11.5-14.5)
[2024-07-05 09:27] LABS: ALT (SGPT) 31 U/L (0-35); AST (SGOT) 30 U/L (14-36); Albumin 3.5 g/dl (3.5-5.0); Alkaline Phosphatase 66 U/L (38-126); Blood Urea Nitrogen 12 mg/dl (7-17); Carbon Dioxide 22 mmol/L (22-30); Chloride 100 mmol/L (98-107); Estimated Creatinine Clearance 89 ml/min; Glucose 100 mg/dl (70-99); Sodium 136 mmol/L (135-145); Total Bilirubin 1.1 mg/dl (0.2-1.3); eGFR > 60.00
--- NOTE | 2024-07-05 11:55 | CM ---
CM reviewed chart, met with patient bedside. Patient agreeable to [facility], confirmed [facility] can accept patient tomorrow. CM inquiring about transportation for patient, patient reports her friend Manny may be able to bring her, discussed option to
pay for transport for [facility]. CM will continue to follow for all discharge planning needs.
Plan; [facility] tomorrow, 07/06/24
[2024-07-05] MEDS: TUMS CHEWABLE TABLET 400 MG PO (13:34)
--- NOTE | 2024-07-05 15:09 | W.PN.HOSP.TC ---
Today's Communication/Plan
-
await dispo
Assessment / Plan
Assessment / Plan
69yo F with PMHX of breast CA, HTN, alcohol abuse came after she lost her balance and fell. found comminuted fracture of the head/neck of the right proximal humerus that Ortho managing conservatively. Advised to repeat XR R arm in 1 week. PT/OT
recommended rehab - CM working on placement
A/P:
#Fall without LOC with comminuted fracture of the head/neck of the right proximal humerus
Ortho - Continue with sling immobilization at all times, NWB to RUE; non operative management
Repeat XR in 1 week
PT/OT
F/u ortho outpatient
#Alcohol abuse with mild withdrawal
Placed on librium by hr psychiatrist
watch for DT
MSAS with ativan
Thiamine/FOlate
Counseled on abstinence
#Transaminitis
minimal 2/2 alcohol abuse
follow LFT
recheck hepC serology (full panel neg in 2020)
#Hyponatremia
-mild
-ctm
#Essential HTN
#SVT
cont home meds
#macrocytic anemia
2/2 alcohol abuse
check B12 - low
-start supplementation
DVt ppx hep
full code
Anticipated Discharge: Within 24 hours
Subjective/Interval History
-
Date of Service: July 05, 2024
No acute events
Objective Data
-
Labs:
Laboratory Results
07/05/24
08:13
WBC 5.0
Hgb 10.5 L
Hct 31.6 L
Plt Count 259 D
Sodium 136
Potassium 4.0
Chloride 100
Carbon Dioxide 22
BUN 12
Creatinine 0.6
Glucose 100 H
Calcium 9.0
Total Bilirubin 1.1
AST 30
ALT 31
Alkaline Phosphatase 66
Vital Signs:
Vital Signs
Temp Pulse Resp BP Pulse Ox
97.4 F 80 18 99/63 95
07/05/24 11:00 07/05/24 11:00 07/05/24 11:00 07/05/24 11:00 07/05/24 11:00
I&O
07/04/24 07/05/24 07/06/24
06:59 06:59 06:59
Intake Total 1560 / 1560 840 / 840
Output Total 100 / 100
Balance 1460 / 1460 840 / 840
Review of Systems
-
History Source: Patient
All other systems: Not reviewed unless documented
Physical Exam
-
General: No Apparent Distress
HEENT: Normocephalic, Atraumatic and Moist Mucous Membranes
Respiratory: Clear to Auscultation
GI: Soft, Nontender and Nondistended
Genito-urinary: No Costovertebral Tender
Musculoskeletal: No Clubbing, No Cyanosis and No Edema
Psych: Calm
Data Reviewed
-
Diagnostic Radiology: Image personally visualized and interpreted and Report Reviewed by me
CT Scan: Image personally visualized and interpreted and Report Reviewed by me
Labs: Labs Reviewed by me
[2024-07-05] MEDS: ATIVAN 0.5 MG PO ×2 (15:32→20:20)
[2024-07-06] MEDS: HEPARIN 5000 UNITS SC ×2 (00:01→08:24)
[2024-07-06] MEDS: ROXICODONE 5 MG PO ×3 (03:14→13:17)
[2024-07-06] MEDS: ATIVAN 0.5 MG PO ×3 (03:14→14:13)
[2024-07-06 03:37] VITALS: BP 108/69
[2024-07-06 07:38] VITALS: BP 146/90
[2024-07-06] MEDS: VITAMIN B1 100 MG PO (08:23)
[2024-07-06] MEDS: LOPRESSOR 200 MG PO (08:23)
[2024-07-06] MEDS: FOLVITE 1 MG PO (08:23)
[2024-07-06] MEDS: LIBRIUM 5 MG PO ×2 (08:24→16:03)
[2024-07-06] MEDS: CYANOCOBALAMIN 1000 MCG IM (08:24)
[2024-07-06] MEDS: CATAPRES 0.2 MG PO ×2 (08:24→16:03)
[2024-07-06] MEDS: ARIMIDEX 1 MG PO (08:25)
[2024-07-06 11:47] VITALS: BP 151/89
--- NOTE | 2024-07-06 11:58 | W.PN.HOSP.TC ---
Addendum entered and electronically signed by Giorgio Urias MD 07/06/24 16:26:
[id number]
patient refused shoulder xr today
Original Note:
Today's Communication/Plan
-
shoulder xr in 3-4 days
b12 supp
f/u ortho, pcp outpatient
Assessment / Plan
Assessment / Plan
69yo F with PMHX of breast CA, HTN, alcohol abuse came after she lost her balance and fell. found comminuted fracture of the head/neck of the right proximal humerus that Ortho managing conservatively. Advised to repeat XR R arm in 1 week. PT/OT
recommended rehab - CM working on placement
A/P:
#Fall without LOC with comminuted fracture of the head/neck of the right proximal humerus
Ortho - Continue with sling immobilization at all times, NWB to RUE; non operative management
Repeat XR in 3-4 days to ensure alignment
PT/OT
F/u ortho outpatient
#Alcohol abuse with mild withdrawal
Placed on librium by hr psychiatrist
watch for DT
MSAS with ativan
Thiamine/FOlate
Counseled on abstinence
#Transaminitis
minimal 2/2 alcohol abuse
follow LFT
recheck hepC serology (full panel neg in 2020)
#Hyponatremia, resolved
-mild
-ctm
#Essential HTN
#SVT
cont home meds
#macrocytic anemia
2/2 alcohol abuse
check B12 - low
-start supplementation
DVt ppx hep
full code
More than 30 minutes spent in discharge including
Final examination of the patient
Summarizing hospital stay
Instructions for continuing care to all relevant caregivers
Preparation of discharge records, prescriptions, and referral forms
Total time spent (35 in minutes):
Anticipated Discharge: Today
Subjective/Interval History
-
Date of Service: July 06, 2024
Had some back itching, improved with Benadryl
Objective Data
-
Vital Signs:
Vital Signs
Temp Pulse Resp BP Pulse Ox
98.5 F 86 20 151/89 96
07/06/24 11:47 07/06/24 11:47 07/06/24 11:47 07/06/24 11:47 07/06/24 11:47
I&O
07/05/24 07/06/24 07/07/24
06:59 06:59 06:59
Intake Total 840 / 840 1680 / 1680
Balance 840 / 840 1680 / 1680
Review of Systems
-
History Source: Patient
All other systems: Not reviewed unless documented
Physical Exam
-
General: No Apparent Distress
HEENT: Normocephalic, Atraumatic and Moist Mucous Membranes
Respiratory: Clear to Auscultation
GI: Soft, Nontender and Nondistended
Genito-urinary: No Costovertebral Tender
Musculoskeletal: No Clubbing, No Cyanosis and No Edema
Psych: Calm
--- NOTE | 2024-07-06 12:02 | W.DS.TRANS ---
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
-
Discharge Instructions:
Sleep Apnea Risk Intermediate
Discharge Diagnosis/Procedures #Fall without LOC with comminuted fracture of
the head/neck of the right proximal humerus
Diet Low Cholesterol,Diabetic, Carb Controlled
Additional Activity Ortho - Continue with sling immobilization at
all times, NWB to RUE; non operative management
Others Tests
Repeat XR in 3-4 days to ensure alignment
Instructions:
Stand-Alone Forms:
Changes to Home Medications: Yes
Discharge Medications:
DC Medications w/original date entered in [employer]
clonidine HCl 0.2 mg tablet 0.2 mg PO TID Blood pressure 04/08/20
anastrozole 1 mg tablet 1 mg PO DAILY Cancer 06/08/23
metoprolol tartrate 100 mg tablet 200 mg (2 x 100 mg) PO BID #30 tabs 06/13/23
chlordiazepoxide HCl 5 mg capsule 5 mg PO TID Mental Health/Anxiety 06/29/24
cyanocobalamin (vitamin B-12) 1,000 mcg capsule 1,000 mcg PO DAILY #14 caps 07/06/24
thiamine HCl (vitamin B1) 100 mg tablet 100 mg PO BID #0 tabs 07/06/24
Home Medication Changes
cyanocobalamin (vitamin B-12) 1,000 mcg capsule 1,000 mcg PO DAILY #14 caps 07/06/24
thiamine HCl (vitamin B1) 100 mg tablet 100 mg PO BID #0 tabs 07/06/24
Pending Results: No
--- NOTE | 2024-07-06 13:00 | CM ---
CM reviewed chart, met with patient several times. CM discussed patient stable for discharge, [facility] can accept patient today. Patient reporting she has not spoken to a doctor, reports she is unable to move her arm due to pain. CM reports
Hospitalist was in to see patient earlier, CM reports she spoke with patient yesterday regarding plan to discharge today to [facility]. CM explained SNF will work with patient to strengthen patient in order for patient to return home. [facility] requesting
to speak to Hospitalist, TT to Doctor. Patient placed call to friend, Manny, friend unable to provide transportation. Patient inquiring if she can go to rehab tomorrow, CM reports patient is being discharged, reviewed IMM and right to appeal,
provided with copy. Patient agreeable for CM to call daughter, Amy. CM spoke with patients daughterAmy reports this is typical of patient. Amy inquiring if hospital can give patient scrub pants/shirt for today until daughter can meet
patient at SNF tomorrow with clothes. Amy reports she will provide payment for WC Van, patient scheduled for 4:00 p.m. transport, cost $85. CM will continue to follow for all discharge planning needs.
Plan; [facility], 4:00 p.m. WC Van transport
[facility]
Report: [phone]
[2024-07-06 15:25] VITALS: BP 146/86
[2024-07-06] MEDS: HEPARIN SC (17:00)
== END 2024-07-06 17:13 | DRG 563 ==
LOC: 4 WEST ACU 09:37
PROVIDERS: Internal Medicine; Physician Assistant; ADMITTING PHYSICIAN Hospitalist; ATTENDING PHYSICIAN Internal Medicine; CONSULT PHYSICIAN Orthopaedic Surgery; EMERGENCY PHYSICIAN Student in an Organized Health Care Education/Training Program
DX: S42.91XA Fracture of right shoulder girdle, part unspecified, initial encounter for closed fracture (principal); E87.1 Hypo-osmolality and hyponatremia; I47.10 Supraventricular tachycardia, unspecified; F10.139 Alcohol abuse with withdrawal, unspecified; F10.129 Alcohol abuse with intoxication, unspecified; C50.919 Malignant neoplasm of unspecified site of unspecified female breast; I10 Essential (primary) hypertension; K21.9 Gastro-esophageal reflux disease without esophagitis; F32.A Depression, unspecified; F41.9 Anxiety disorder, unspecified
CPT/HCPCS: 23675; 70450; 72125; 73030; 73060; 73200; 80053; 82077; 82607; 82746; 83735; 84484; 85025; 85027; 86803; 93005; 96374; 96375; 96376; 97116; 97162; 97167; 97530; 97535; 99152; 99285

== ENCOUNTER 2024-07-06 23:28 | Observation (INO) | payer MEDICARE, OTHER, SELFPAY ==
[2024-07-06 19:18] VITALS: BP 137/89
[2024-07-06 19:19] VITALS: BP 137/89; BMI 28.0
--- NOTE | 2024-07-06 19:44 | ED.GENMED ---
History of Present Illness
General
Chief Complaint: Chest Pain
Source: patient
Exam Limitations: none
Time Seen by Provider: 07/06/24 19:24
History of Present Illness
History of Present Illness:
This is a 69 year old female that comes in with c/o needing medication. Patient was just discharged 1 hour ago. States that she was told that she was going to have the same medications that she had here at the long-term for her rehab. States that
when she got there she was told that this was not true. States that she was on oxycodone and Benzo's 2 of them. States that she got nervous since she wasn't getting her medication and then had some chest pain. States that she needs these
medications. Denies fever, chills, SOB, abd pain, nausea, vomiting, diarrhea, dizziness, urinary, burning.
Past History
Past History
ED Past Medical History: Arrthythmia (Paroxysmal atrial fibrillation, SVT), CAD, Cancer (Breast, skin), GERD, HTN, AL, Psychiatric (Anxiety, depression, alcohol abuse, benzodiazepine abuse) and Other (Ulcers, PE, Left shoulder fracture, GI bleeding,
headaches, Neck pain, fracture ribs due to fall, )
ED Past Surgical History: Appendectomy, Orthopedic (right arm surgery. Left elbow), Tonsilectomy and Other ([place] teeth extraction and left arm surgery, Partial mastectomy for CA)
Social History
Tobacco: Non-smoker
Alcohol: Chronic alcoholic (Wine 3 bottles daily)
Drug: Other (Benzodiazepine abuse)
Personal:
Living: long-term (For rehab)
Employment: Not employed
Family History
Family History: Other (MS and hypertension)
Review of Systems
Review of Systems
All Other Systems: ROS reviewed and negative except as documented in HPI and ROS
Constitutional: Reports no symptoms; Denies fever or chills
EENT: Reports no symptoms
Respiratory: Reports no symptoms; Denies cough or trouble breathing
Cardiac: Reports chest pain
ABD/GI: Reports no symptoms; Denies abdominal pain, nausea, vomiting or diarrhea
: Reports no symptoms; Denies dysuria, frequency or urgency
Musculoskeletal: Reports no symptoms
Skin: Reports no symptoms
Neurological: Reports headache; Denies dizzy
Psychiatric: Reports no symptoms
Phy Exam
General Physical Exam
General Presentation: no apparent distress
General age: appears stated age
General Skin: warm and dry
General Habitus: elderly
General Mental: alert
General Hydration: appears well hydrated
ENT Exam
ENT Exam: TM's normal, pharynx normal and neck supple
Eye Exam
Eye Exam: EOMI
Cardiovascular Exam
Cardiovascular Exam: regular rate/rhythm, no edema and normal peripheral pulses
Pulmonary Exam
Pulmonary Exam: no respiratory distress, chest non tender, no rhonchi, no wheezing, no cough and other (Fine rales at bases)
Gastrointestinal Exam
Gastrointestinal Exam: normal bowel sounds, non tender, soft, no organomegaly, no pulsatile mass and non distended
Musculoskeletal Exam
Musculoskeletal Exam: no edema and other (Right arm in a sling)
Skin Exam
Skin Exam: normal color, warm/dry, no rash, no petechia and other (Contusion of the right forearm)
Psychiatric Exam
Psychiatric Exam: normal mood/affect
Scores
Heart Score for Chest Pain Patients
STEMI patient?: No
History: Slightly or Non-Suspicious
ECG: Normal
Age: >/= 65 years
Risk Factors: 1 or 2 Risk Factors
Troponin: </= Normal Limit
Heart Score for Chest Pain Patients: 3
Heart Score Risk: 2.5% MACE over next 6 weeks
Course
Orders/Labs/Results
Orders:
Orders
07/06/24 19:43
Electrocardiogram (*1) Urgent
Reason for Study: Chest Pain
EKG- Treatment ONCE
Oxycodone [Roxicodone] 5 mg PO NOW STA
07/06/24 19:55
Troponin I Urgent
07/06/24 22:41
Admit/Transfer Patient As Directed
Co-Sign Provider:
Level of Care: Observation services
Assign to:: Medical/Surgical
Physician / Group: hospitalist
Diagnosis: alcohol intoxication
07/06/24 22:43
Code Status As Directed
Resuscitation Status: Full Code
07/06/24 23:00
Flush (0.9% Sodium Chloride) [Flush (Nss)] See Dose Instructions IV PER PROTOCOL
07/07/24 01:43
Acetaminophen [Tylenol] 650 mg PO Q4HPRN PRN
Bisacodyl [Dulcolax] 10 mg RECTAL [id number] PRN
Docusate W/Senna [Senokot-S] 1 tablet PO BIDPRN PRN
Oxycodone [Roxicodone] 5 mg PO Q8HPRN PRN
Polyethylene Glycol Powder [Miralax] 17 grams PO DAILYPRN PRN
07/07/24 01:43
Case Management Consult ONCE
Case Management Consult: Discharge Planning
Activity As Directed
Activity Level: With Assistance
Sling [Braces/Immobilizers] As Directed
Type of Brace/Immobilizer: Sling
Instructions: On right arm, Non weight bearing on right side
Vital Signs As Directed
Frequency: Per unit guidelines
DX Deep Vein Thrombosis Video Routine
DX Deep Vein Thrombosis Video Routine
07/07/24 08:00
Anastrozole [Arimidex] 1 mg PO DAILY
CHLORDIAZEPOXIDE HCl [Librium] 5 mg PO TID
Clonidine [Catapres] 0.2 mg PO TID
Cyanocobalamin [Vitamin B-12] 1,000 mcg PO DAILY
Metoprolol [Lopressor] 200 mg PO BID
Thiamine HCl [Vitamin B1] 100 mg PO BID
07/07/24 Dinner
Regular
At Your Request: Limited Participation
07/07/24 18:00
Enoxaparin Sodium [Lovenox] 40 mg SC QPM
Vital Signs
Initial and Last Documented VS:
Initial Vital Signs
Temp Pulse Resp
97.5 F 90 18
07/06/24 19:15 07/06/24 19:15 07/06/24 19:15
Last Documented Vital Signs
Temp Pulse Resp BP Pulse Ox
98.9 F 101 18 165/99 95
07/07/24 01:57 07/07/24 01:57 07/07/24 01:57 07/07/24 01:57 07/07/24 01:57
MDM/Problems Addressed
Differential Diagnosis Includes:
Anxiety,
MDM/Problems Addressed:
This is a 69 year old female that was just discharged 1 hour ago. States that she was told that she was to have the same medications that she had here and this was not true. States that she was to be on oxycodone and Benzo's. States that she got
anxious and then had some chest discomfort.
Will check ECG, Troponin. Spoke with EVENING OR NIGHT NURSE SUPERVISOR hospitalist. Patient was on Oxycodone and Ativan while here. Will give patient prescription for both and she will need to see the Doctor at [facility] for further mediation. Will discharge patient back to
[place].
Spoke with [facility] and they are refusing to except patient back. Spoke with Carlos the director park. State that the patient had threatened the staff. Explained that she did not have her Pain medication or her Ativan and
prescriptions were being sent back with patient. They still refused to take patient. Tried to bring up that she was intoxicated and explained that the patient was not intoxicated as she has been in the hospital. They still refused to take patient.
Explained that this is inappropriate to refuse a patient that was just excepted there today. Will admit for social reason until Case management can find further placement.
Chronic conditions affecting care: Psychiatric illness
Acute Exacerbation and/or Progression of Chronic Illness: Psychiatric illness
*Pulse Oximetry
Patient hypoxic: no
*EKG
Interpreted by ED Provider?: Yes
Heart Rate: 90
Rate: normal
Rhythm: sinus
[place]: normal axis
Interval: normal interval
QRS Pattern: normal QRS
Ischemia: non-specific ST changes (I, aVL, V2, V3, V4, V5, V6)
*Diesel Scoop Operator Interpretation
Rate: normal
Heart Rate: 94
Rhythm: sinus
*Critical Care Note
Total Time (30-74mins, 75-104mins- exclusive of procedures): Not Applicable
ED Attending Note
-
Portions of this chart may have been created with voice recognition software.� Occasional wrong word or��sound alike� substitutions may have occurred due to the inherent limitations of voice recognition software.
Discharge Plan
Departure
Patient Disposition: Admit
Date of Disposition: 07/06/24
Time of Disposition: 20:55
Presentation/result/management discussed w/ accepting MD/DO: Hospitalist
Patient with high blood pressure during this ER visit?: Yes
Condition: Good
Covid-19: Not Applicable
Discharge Problem:
Request for narcotic pain medication, Hospital admission due to social situation
Interventions
Interventions:
*Risk Screen - Suicide Last Done: 07/07/24 01:47
*General Assessment Last Done: 07/06/24 19:19
*Neglect/Abuse Screening Last Done: 07/06/24 19:19
ED- Fall Risk Assessment Last Done: 07/06/24 19:21
*ED COVID-19 Vaccine History Last Done: 07/07/24 01:47
*Nursing Disposition Last Done: 07/07/24 01:29
ED- Cardiac Assessment Last Done: 07/06/24 19:21
Discharge Date and Time
Discharge Date/Time: 07/07/24 01:35
[2024-07-06] MEDS: ROXICODONE 5 MG PO (19:51)
[2024-07-06 20:52] LABS: Troponin I < 0.012 ng/ml
[2024-07-06 21:00] VITALS: BP 155/89
[2024-07-06 22:00] VITALS: BP 126/78
[2024-07-06 23:00] VITALS: BP 143/84
--- NOTE | 2024-07-06 23:00 | HPS.HSE ---
Family Physician
-
Family Physician: * NONE
Chief Complaint
-
Right arm pain, failure to transfer to rehab
History of Present Illness
This is a 69-year-old female with past medical history of alcohol dependence, hypertension, prior history of breast cancer, anxiety and panic episodes who presents to the emergency department after discharge for being unable to receive medications.
Patient was admitted here about 2 days ago following a fall and right-sided humeral displaced comminuted fracture not requiring any surgical intervention. She was managed medically. She was monitored for alcohol withdrawal. She agrees to alcohol
rehab and was discharged to rehab. Today on arrival and at rehab the patient found out that she was not getting prescribed dose of oxycodone and lorazepam. She requested these medications and rehab center back to the emergency department. In the
emergency department the patient was written prescription for these medications but rehab will not take her back tonight. As stated that patient was abusive to staff over there. The patient denied any of this to me. She stated she did not result.
Only requested medications. She is refusing to return to the rehab. She continues to have right hand pain. She denies any numbness or tingling. She denies lightheadedness or dizziness.
In the ED she was afebrile, hemodynamically stable in no acute distress.
Medical History
Past Medical History
Past Medical History: Reports Cancer (remote breast ca), HTN and Psychiatric (anxiety)
Additional Past Medical History:
Alcohol dependence
Past Surgical History: Reports None
Social History
Tobacco: Non-smoker
Alcohol: Daily
Drug: None
Personal: Single
Living: Alone
Employment: Not Employed
Family History
Family History: Not pertinent
Allergies / Home Medications
Allergies reflects when Allergies were last updated in [employer].
Home Medications with original date entered in [employer]
Allergy/Medication List:
Allergies
Allergy/AdvReac Type Severity Reaction Status Date / Time
apixaban [From Eliquis] Allergy Rash Verified 06/08/23 01:12
haloperidol lactate Allergy tongue Verified 06/08/23 01:12
[From Haldol] swelled
quetiapine [From Seroquel] Allergy weakness Verified 06/30/24 20:59
Home Medications
clonidine HCl 0.2 mg tablet 0.2 mg PO TID Blood pressure 04/08/20
anastrozole 1 mg tablet 1 mg PO DAILY Cancer 06/08/23
metoprolol tartrate 100 mg tablet 200 mg (2 x 100 mg) PO BID #30 tabs 06/13/23
chlordiazepoxide HCl 5 mg capsule 5 mg PO TID Mental Health/Anxiety 06/29/24
cyanocobalamin (vitamin B-12) 1,000 mcg capsule 1,000 mcg PO DAILY #14 caps 07/06/24
lorazepam 0.5 mg tablet (Ativan) 0.5 mg PO BID PRN anxiety #20 tabs 07/06/24
oxycodone 5 mg tablet 5 mg PO Q8H PRN Pain #10 tabs 07/06/24
thiamine HCl (vitamin B1) 100 mg tablet 100 mg PO BID #0 tabs 07/06/24
Review of Systems
-
History Source: Patient
Constitutional: Reports No Symptoms
EENT: Reports No Symptoms
Respiratory: Reports No Symptoms
Cardiac: Reports No Symptoms
Abdomen/GI: Reports No Symptoms
: Reports No Symptoms
Musculoskeletal: Reports Joint Pain
Skin: Reports No Symptoms
Neurological: Reports No Symptoms
Endocrine: Reports No Symptoms
Hematologic/Lymphatic: Reports No Symptoms
Psych: Reports No Symptoms
Physical Exam
Vital Signs
Vital Signs
Temp Pulse Resp BP Pulse Ox
97.5 F 96 21 126/78 91
07/06/24 19:15 07/06/24 22:30 07/06/24 22:30 07/06/24 22:00 07/06/24 22:15
Physical Exam
General: Well Developed, Well Nourished, No Apparent Distress and Comfortable
HEENT: NormoCephalic, Anicteric, Moist mucous membranes and Atraumatic
Respiratory: Clear
Cardiac: S1/S2 and Regular Rhythm
Breast: Deferred by me
GI: Soft, Non Tender, Non Distended and Normal Bowel Sounds
Rectal: Deferred by Provider
Genito-urinary: Deferred by me
Musculoskeletal: No Clubbing, No Cyanosis and No Edema
Skin: Warm
Neuro: AO x 3 and No Motor Deficits
Hematologic/Lymphatic: No Lymphadenopathy
Psych: Calm
Laboratory Results
-
Laboratory Results
Troponin I < 0.012 ng/ml 07/06/24 19:55
Data Reviewed
-
Medical Tests (Nuc Med, Echo, EKG etc): Image Personally Visualized and interpreted
Lab Data: Labs Reviewed by me
Old Records: Reviewed
Impression/Plan
-
IMPRESSION:
Patient with h/o etoh dependence recently status post fall without LOC and suffered a R humerus comminuted fracture, managed medically and monitored for etoh withdrawal. Discharged today but had disagreement with rehab facility regarding
medications so sent to ED. Rehab refusing to take patient back due to concern for abusive behavior. Patient also refusing to return to rehab. She is well appearing and hemodynamically stable. She has no acute complaints except for ongoing
shoulder pain/discomfort.
PLAN:
1. ETOH dependence / Rehab - Out of window for withdrawal.
- admit to obs
- continue librium
- continue thiamine and b12
2. Arm fracture/ Pain control
- tylenol and oxycocone 5mg q 8 prn
- maintain sling
- repeat xray in 3 days
3. Disposition
- case management
DVT PPX - lovenox sq
Code status - full code
[2024-07-07 01:55] VITALS: BMI 28.0
[2024-07-07 01:57] VITALS: BP 165/99
--- NOTE | 2024-07-07 01:57 | PTCARENOTE ---
Pt arrived onto floor @0157. Pt AAOx3 and able to ambulate into room with minimal assistance. Pt with no complaints of SOB at this time, rates pain in R arm 8/10 -- PRN roxicodone given. Pt oriented to room and call posey; will continue to monitor.
[2024-07-07 01:59] VITALS: BMI 28.2
[2024-07-07] MEDS: ROXICODONE 5 MG PO ×2 (02:03→11:00)
[2024-07-07 07:00] VITALS: BP 163/107
[2024-07-07] MEDS: LOPRESSOR 200 MG PO (08:39)
[2024-07-07] MEDS: VITAMIN B1 100 MG PO (08:39)
[2024-07-07] MEDS: VITAMIN B-12 1000 MCG PO (08:40)
[2024-07-07] MEDS: ARIMIDEX 1 MG PO (08:40)
[2024-07-07] MEDS: CATAPRES 0.2 MG PO (08:40)
[2024-07-07] MEDS: LIBRIUM 5 MG PO (08:42)
[2024-07-07 08:45] VITALS: BMI 28.2
--- NOTE | 2024-07-07 12:54 | W.PN.HOSP.TC ---
Addendum entered and electronically signed by Giorgio Urias MD 07/07/24 15:38:
[id number]
Original Note:
Today's Communication/Plan
-
shoulder xr in 3 days
b12 supp
f/u ortho, pcp outpatient
Assessment / Plan
Assessment / Plan
Physical Exam
General: Well Developed, Well Nourished, No Apparent Distress and Comfortable
HEENT: NormoCephalic, Anicteric, Moist mucous membranes and Atraumatic
Respiratory: Clear
Cardiac: S1/S2 and Regular Rhythm
Breast: Deferred by me
GI: Soft, Non Tender, Non Distended and Normal Bowel Sounds
Rectal: Deferred by Provider
Genito-urinary: Deferred by me
Musculoskeletal: No Clubbing, No Cyanosis and No Edema (Right Sling in place)
Skin: Warm
Neuro: AO x 3 and No Motor Deficits
Hematologic/Lymphatic: No Lymphadenopathy
Psych: Calm
#Fall without LOC with comminuted fracture of the head/neck of the right proximal humerus
Ortho - Continue with sling immobilization at all times, NWB to RUE; non operative management
Repeat XR in 3 days to ensure alignment
PT/OT
F/u ortho outpatient
-Refused xr here
#Alcohol abuse with mild withdrawal
Placed on librium by hr psychiatrist
watch for DT
MSAS with ativan
Thiamine/FOlate
Counseled on abstinence
#Transaminitis
minimal 2/2 alcohol abuse
follow LFT outpt
recheck hepC serology (full panel neg in 2020)
#Hyponatremia, resolved
-mild
-ctm
#Essential HTN
#SVT
cont home meds
#macrocytic anemia
2/2 alcohol abuse
check B12 - low
-start supplementation
DVt ppx hep
full code
More than 30 minutes spent in discharge including
Final examination of the patient
Summarizing hospital stay
Instructions for continuing care to all relevant caregivers
Preparation of discharge records, prescriptions, and referral forms
Total time spent (37 in minutes):
Anticipated Discharge: Today
Subjective/Interval History
-
Date of Service: July 07, 2024
No acute events, no reason for Pain medications
Objective Data
-
Vital Signs:
Vital Signs
Temp Pulse Resp BP Pulse Ox
97.6 F 98 18 158/88 98
07/07/24 07:00 07/07/24 08:40 07/07/24 07:00 07/07/24 08:40 07/07/24 08:45
Review of Systems
-
History Source: Patient
All other systems: Not reviewed unless documented
Data Reviewed
-
Diagnostic Radiology: Image personally visualized and interpreted and Report Reviewed by me
CT Scan: Image personally visualized and interpreted and Report Reviewed by me
Labs: Labs Reviewed by me
--- NOTE | 2024-07-07 12:57 | W.DS.TRANS ---
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
-
Discharge Instructions:
Sleep Apnea Risk High
Discharge Diagnosis/Procedures Fall without loss of consciousness with
comminuted fracture of the head/neck of the
right proximal humerus.
Diet Low Cholesterol,Low Fat,Diabetic, Carb
Controlled
Activity Other activity
Additional Activity Continue with sling immobilization at all times
, NWB to RUE; non operative management
Blood Work cbc and bmp in 3-5 days
Others Tests Repeat XR in 3-4 days to ensure alignment
Instructions:
Stand-Alone Forms:
Changes to Home Medications: No
Discharge Medications:
DC Medications w/original date entered in [employer]
clonidine HCl 0.2 mg tablet 0.2 mg PO TID Blood pressure 04/08/20
anastrozole 1 mg tablet 1 mg PO DAILY Cancer 06/08/23
metoprolol tartrate 100 mg tablet 200 mg (2 x 100 mg) PO BID #30 tabs 06/13/23
chlordiazepoxide HCl 5 mg capsule 5 mg PO TID Mental Health/Anxiety 06/29/24
cyanocobalamin (vitamin B-12) 1,000 mcg capsule 1,000 mcg PO DAILY #14 caps 07/06/24
thiamine HCl (vitamin B1) 100 mg tablet 100 mg PO BID #0 tabs 07/06/24
Home Medication Changes
Na
Pending Results: No
[2024-07-07 15:00] VITALS: BP 178/110
--- NOTE | 2024-07-07 15:22 | CM ---
Addendum entered by Malissa Freeman 07/07/24 15:44:
[facility] Visiting Nurses
[phone]

Addendum entered by Malissa Freeman 07/07/24 15:42:
compliance manager left message for patient's daughter Benita that paitn had been discharge and Manny transported patient to home.
Original Note:
compliance manager reviewed patient's chart and patient was admitted under OBS, [facility]A letter completed and placed on chart. Patient lives alone in a multilevel home, patient is independent with adl's and ambulation, patient has a cane and walker in home.
Patient's friend Manny is at bedside and is aware that patient has been cleared for discharge today, plan is to home with visiting nurses and private caregivers, showcase trimmer spoke with patient and patient's daughter who is agreeable to private pay
for [facility] aides in home, [facility] to set up physician as patient has no PCP.
Pharmacy: [facility]
Plan; Home today with [facility] visiting nurse and private aides, friend and neighbor Manny to transport patient to home.
--- NOTE | 2024-07-07 16:19 | PTCARENOTE ---
07/07- When educating as to discharge instructions, patient asked, 'If I don't come here again, and I go to [place] for the pain medication, will they accept me?' Advised patient if she chooses another hospital, to give them the symptoms that
brought her there as well as her full health hx. She then asked, 'Well if I come back here and only come when [facility] is here, will [facility] give me my pain medicine?' Advised it is inappropriate to seek a specific provider for pain medication.
Advised she's always welcome back in this ER for any further or persistent symptoms that cannot be resolved at home. She verbalized understanding. She signed and verbalized understanding of discharge instructions.
== END 2024-07-07 16:25 | disposition home health service (06) ==
LOC: 4 WEST ACU 23:28
PROVIDERS: Clinical Nurse Specialist Family Health; ADMITTING PHYSICIAN Internal Medicine; ATTENDING PHYSICIAN Internal Medicine; EMERGENCY PHYSICIAN Emergency Medicine
DX: F41.9 Anxiety disorder, unspecified (principal); R07.89 Other chest pain; I10 Essential (primary) hypertension; I25.10 Atherosclerotic heart disease of native coronary artery without angina pectoris; I48.0 Paroxysmal atrial fibrillation; F10.230 Alcohol dependence with withdrawal, uncomplicated; F13.10 Sedative, hypnotic or anxiolytic abuse, uncomplicated; F10.220 Alcohol dependence with intoxication, uncomplicated; K21.9 Gastro-esophageal reflux disease without esophagitis; F32.A Depression, unspecified; M79.601 Pain in right arm; M79.641 Pain in right hand; R74.01 Elevation of levels of liver transaminase levels; E87.1 Hypo-osmolality and hyponatremia; D53.9 Nutritional anemia, unspecified; W19.XXXA Unspecified fall, initial encounter; Y93.9 Activity, unspecified; Y92.9 Unspecified place or not applicable; S42.291A Other displaced fracture of upper end of right humerus, initial encounter for closed fracture; I25.2 Old myocardial infarction; Z82.49 Family history of ischemic heart disease and other diseases of the circulatory system; Z85.828 Personal history of other malignant neoplasm of skin; Z60.8 Other problems related to social environment; Z85.3 Personal history of malignant neoplasm of breast; Z88.8 Allergy status to other drugs, medicaments and biological substances; Z79.811 Long term (current) use of aromatase inhibitors
CPT/HCPCS: 84484; 93005; 99285; G0378

== ENCOUNTER 2025-03-12 15:49 | Emergency (ER) | payer MEDICARE, OTHER, SELFPAY ==
[2025-03-12 15:53] VITALS: BP 104/77
--- NOTE | 2025-03-12 21:48 | ED.MUSCINJ ---
HPI-Injury
General
Chief Complaint: Fall
Source: patient
Exam Limitations: none
Time Seen by Provider: 03/12/25 16:44
Nursing documentation reviewed up to this point in time: agreed with
History of Present Illness-Injury
Is this injury a work related problem?: No
Is pt an associate of [facility]?: No
Initial Injury comments:
Patient states she tripped over some boxes and fell. Denies hitting her head. Complains of pain to her left hip, neck. Injury occurred approx 1 weeka go.
Past History
Past History
ED Past Medical History: Arrthythmia (Paroxysmal atrial fibrillation, SVT), CAD, Cancer (Breast, skin), GERD, HTN, [place], Psychiatric (Anxiety, depression, alcohol abuse, benzodiazepine abuse) and Other (Ulcers, PE, Left shoulder fracture, GI bleeding,
headaches, Neck pain, fracture ribs due to fall, )
ED Past Surgical History: Appendectomy, Orthopedic (right arm surgery. Left elbow), Tonsilectomy and Other ([place] teeth extraction and left arm surgery, Partial mastectomy for CA)
Social History
Tobacco: Non-smoker
Alcohol: Chronic alcoholic (Wine 3 bottles daily)
Drug: Other (Benzodiazepine abuse)
Personal:
Living: alf (For rehab)
Employment: Not employed
Family History
Family History: Other (MS and hypertension)
Review of Systems
Review of Systems
Allergies reviewed?: Yes
All Other Systems: ROS reviewed and negative except as documented in HPI and ROS
Constitutional: Reports no symptoms
EENT: Reports no symptoms
Respiratory: Reports no symptoms
Cardiac: Reports no symptoms
ABD/GI: Reports no symptoms
: Reports no symptoms
Musculoskeletal: Reports joint pain (pain to left wrist, neck)
Skin: Reports no symptoms
Neurological: Reports no symptoms
Psychiatric: Reports no symptoms
Musculoskeletal Injury Exam
Musculoskeletal Injury Exam
Left Wrist:
Pain with Movement?: Moderate
Tender to palpation?: Moderate
Soft tissue swelling?: Mild
External deformity and angulation?: None
Joint effusion?: None
Contusion?: None
Hematoma-local bleeding into tissue?: Mild
Strain- Sprain- Tear (Connective tissue injury)?: Moderate
Crepitus with movement?: No
Joint instability?: No
Malalignment/deformity?: No
Range of motion: Limited
Distal skin color and temperature: normal-warm & good color
Capillary Refill: normal
Normal distal neurovascular exam?: Yes
Peripheral Pulses: radial (left): 3+
Posterior Neck:
Pain with Movement?: Mild
Tender to palpation?: Mild
Soft tissue swelling?: None
External deformity and angulation?: None
Joint effusion?: None
Contusion?: None
Hematoma-local bleeding into tissue?: None
Strain- Sprain- Tear (Connective tissue injury)?: Mild
Crepitus with movement?: No
Joint instability?: No
Malalignment/deformity?: No
Range of motion: Full
Distal skin color and temperature: normal-warm & good color
Capillary Refill: normal
Normal distal neurovascular exam?: Yes
Phy Exam
General Physical Exam
General Presentation: well appearing and mild distress
General age: appears stated age
General Skin: warm and dry
General Habitus: normal
General Mental: alert
Eye Exam
Eye Exam: PERRL, EOMI, conjunctiva normal and globe normal
Neurological Exam
Neurological Exam: alert, oriented x3, CN II-XII intact, no motor deficits, no sensory deficits and speech normal
Musculoskeletal Exam
Musculoskeletal Exam: no edema and neuro vasc intact
Skin Exam
Skin Exam: normal color, warm/dry and no rash
Psychiatric Exam
Psychiatric Exam: normal mood/affect
Injury Course
Orders/Labs/Results
Orders:
Orders
03/12/25 15:57
CR Cervical Spine 4 Or 5 Vw Urgent
Comment:
Reason For Exam: neck pain after a fall
03/12/25 15:59
CR Wrist - Left Min 3 Views Urgent
Comment:
Reason For Exam: Fall, pain.
03/12/25 16:58
Sling Left-Treatment ONCE
Volar Left-Treatment ONCE
*Radiology
Radiology exam reviewed: radiology read reviewed
*Pulse Oximetry
SaO2: 96
Oxygen Mode of Delivery: Room air
Patient hypoxic: no
*Critical Care Note
Total Time (30-74mins, 75-104mins- exclusive of procedures): Not Applicable
Update Note
Update Note:
Trip and fall at home 1 week ago. Reports pain to neck and wrist. CT neck neg for acute findings. Xray of wrist confirms left distal radius fracture. SHe was placed in a volar splint and sling. Discharged home and will contact ortho in AM to
schedule appointment. Given instructions on s/s to return to ED and she is agreeable to plan
ED Attending Note
-
Portions of this chart may have been created with voice recognition software.� Occasional wrong word or��sound alike� substitutions may have occurred due to the inherent limitations of voice recognition software.
Discharge Plan
Departure
Patient Disposition: Home (Routine Discharge)
Date of Disposition: 03/12/25
Time of Disposition: 16:59
Patient with high blood pressure during this ER visit?: No
Condition: Good
Covid-19: Not Applicable
Discharge Problem:
Left wrist fracture
Instructions: Wrist Fracture (DC), Preventing falls in adults, Ibuprofen, Using Cold for Pain, Splint Care
Prescriptions:
No Action
clonidine HCl 0.2 MG tablet
0.2 mg PO TID
Patient Comments:
pt states she in non compliant with taking medication
anastrozole 1 mg tablet
1 mg PO DAILY
metoprolol tartrate 100 mg Tablet
200 mg PO BID Qty: 30 0RF
Rx Instructions:
new dose
chlordiazepoxide HCl 5 mg Capsule
5 mg PO TID
Patient Comments:
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
thiamine HCl (vitamin B1) 100 mg Tablet
100 mg PO BID Qty: 0 0RF
cyanocobalamin (vitamin B-12) 1,000 mcg capsule
1,000 mcg PO DAILY Qty: 14 0RF
Referrals:
Yeison Cortez MD [Active, Orthopedics] - Call in 1-3 days for appt
Interventions
Interventions:
*Risk Screen - Suicide Last Done: 03/12/25 18:10
*General Assessment Last Done: 03/12/25 18:10
*Neglect/Abuse Screening Last Done: 03/12/25 18:10
*ED- Fall Risk Assessment Last Done: 03/12/25 18:10
*ED COVID-19 Vaccine History Last Done: 03/12/25 18:10
*Nursing Disposition Last Done: 03/12/25 18:10
ED-Musculoskeletal Assessment Last Done: 03/12/25 18:07
ED- Neurological Assessment Last Done: 03/12/25 18:07
ED-Skin Assessment Last Done: 03/12/25 18:07
Discharge Date and Time
Discharge Date/Time: 03/12/25 18:10
Print Language: UKRAINIAN
== END 2025-03-12 18:10 | disposition home or self-care (01) ==
LOC: EMR 15:49
PROVIDERS: EMERGENCY PHYSICIAN Emergency Medicine; FAMILY PHYSICIAN Family Medicine
DX: S62.102A Fracture of unspecified carpal bone, left wrist, initial encounter for closed fracture (principal); W01.0XXA Fall on same level from slipping, tripping and stumbling without subsequent striking against object, initial encounter; I48.0 Paroxysmal atrial fibrillation; I25.10 Atherosclerotic heart disease of native coronary artery without angina pectoris; I10 Essential (primary) hypertension; K21.9 Gastro-esophageal reflux disease without esophagitis; I25.2 Old myocardial infarction; F41.8 Other specified anxiety disorders; Z82.49 Family history of ischemic heart disease and other diseases of the circulatory system; Z85.828 Personal history of other malignant neoplasm of skin; Z90.49 Acquired absence of other specified parts of digestive tract; F10.10 Alcohol abuse, uncomplicated
CPT/HCPCS: 99283; 29125; 72050; 73110

== ENCOUNTER 2025-03-14 02:25 | Emergency (ER) | payer MEDICARE, OTHER, SELFPAY ==
[2025-03-14 02:28] VITALS: BP 174/110
[2025-03-14 03:30] LABS: Hematocrit 35.1 % (37.0-47.0); Hemoglobin 12.0 g/dL (12.0-16.0); Mean Corp Hgb Conc. 34.2 g/dL (33.0-37.0); Mean Corpuscular Volume 108.3 fL (81.0-99.0); Nucleated Red Blood Cells % 0 %; Platelet Count 230 10^3/uL (130-400); Red Cell Dist. Width 13.7 % (11.5-14.5)
[2025-03-14 03:55] LABS: ALT (SGPT) 65 U/L (0-35); AST (SGOT) 72 U/L (14-36); Albumin 4.0 g/dl (3.5-5.0); Alkaline Phosphatase 82 U/L (38-126); Blood Urea Nitrogen 13 mg/dl (7-17); Calcium 9.4 mg/dl (8.4-10.2); Carbon Dioxide 21 mmol/L (22-30); Chloride 105 mmol/L (98-107); Glucose 117 mg/dl (70-99); Potassium 4.2 mmol/L (3.5-5.1); Sodium 136 mmol/L (135-145); Total Protein 6.4 g/dl (6.3-8.2); eGFR > 60.00
[2025-03-14 04:07] LABS: Troponin I < 0.012 ng/ml
== END 2025-03-14 04:57 ==
LOC: EMR 02:25
PROVIDERS: Student in an Organized Health Care Education/Training Program
DX: R07.89 Other chest pain (principal)
CPT/HCPCS: 80053; 84484; 85025; 93005

== ENCOUNTER 2025-04-13 17:29 | Emergency (ER) | payer MEDICARE, OTHER, SELFPAY ==
[2025-04-13 17:30] VITALS: BP 127/76
[2025-04-13 17:35] VITALS: BP 124/96
[2025-04-13 17:37] VITALS: BP 127/76
[2025-04-13 17:41] VITALS: BMI 27.1
[2025-04-13 18:13] VITALS: BP 125/92
[2025-04-13 19:15] LABS: Hematocrit 38.1 % (37.0-47.0); Hemoglobin 13.3 g/dL (12.0-16.0); Mean Corp Hgb Conc. 34.9 g/dL (33.0-37.0); Mean Corpuscular Volume 106.7 fL (81.0-99.0); Nucleated Red Blood Cells % 0.4 %; Platelet Count 257 10^3/uL (130-400); Red Cell Dist. Width 12.5 % (11.5-14.5)
[2025-04-13 19:41] LABS: ALT (SGPT) 25 U/L (0-35); AST (SGOT) 34 U/L (14-36); Albumin 4.3 g/dl (3.5-5.0); Alkaline Phosphatase 81 U/L (38-126); Blood Urea Nitrogen 6 mg/dl (7-17); Calcium 9.4 mg/dl (8.4-10.2); Carbon Dioxide 25 mmol/L (22-30); Chloride 102 mmol/L (98-107); Estimated Creatinine Clearance 77 ml/min; Glucose 94 mg/dl (70-99); Potassium 4.9 mmol/L (3.5-5.1); Sodium 137 mmol/L (135-145); Total Protein 6.8 g/dl (6.3-8.2); eGFR > 60.00
[2025-04-13] MEDS: PERCOCET 5/325 1 TABLET PO (20:04)
--- NOTE | 2025-04-13 21:02 | ED.GENMED ---
History of Present Illness
General
Chief Complaint: Fall
Source: patient and ambulance crew
Exam Limitations: other (intoxicated)
Time Seen by Provider: 04/13/25 17:48
History of Present Illness
History of Present Illness:
Patient is a 70-year-old female with past medical history of alcohol use disorder, benzodiazepine use disorder, anxiety, depression, paroxysmal atrial fibrillation, SVT, CAD, GERD, hypertension, [place], who presents to the emergency department from home
via EMS for evaluation of hip pain. Patient reports that she fell 1 week ago. She endorses pain over her right hip. She reports that she has been taking Percocet that was prescribed to her previously but she ran out of it today. She reports that
she drank a bottle of wine to cope with the pain. Patient unable to provide additional history due to her being intoxicated. Instead, she is yelling at myself and the nurses using foul language.
Past History
Past History
ED Past Medical History: Arrthythmia (Paroxysmal atrial fibrillation, SVT), CAD, Cancer (Breast, skin), GERD, HTN, [place], Psychiatric (Anxiety, depression, alcohol abuse, benzodiazepine abuse) and Other (Ulcers, PE, Left shoulder fracture, GI bleeding,
headaches, Neck pain, fracture ribs due to fall, )
ED Past Surgical History: Appendectomy, Orthopedic (right arm surgery. Left elbow), Tonsilectomy and Other ([place] teeth extraction and left arm surgery, Partial mastectomy for CA)
Social History
Tobacco: Non-smoker
Alcohol: Chronic alcoholic (Wine 3 bottles daily)
Drug: Other (Benzodiazepine abuse)
Personal:
Living: long term (For rehab)
Employment: Not employed
Family History
Family History: Other (MS and hypertension)
Review of Systems
Review of Systems
Allergies reviewed?: Yes
Unable to obtain full review of systems at this time due to: other (intoxicated)
Musculoskeletal: Reports other (right hip pain)
Phy Exam
General Physical Exam
General Presentation: no apparent distress
General Skin: warm and dry
General Habitus: normal
General Mental: appears intoxicated and verbally abusive
General Hydration: appears well hydrated
ENT Exam
ENT Exam: EOMI
Eye Exam
Eye Exam: PERRL and conjunctiva normal
Cardiovascular Exam
Cardiovascular Exam: regular rate/rhythm, no edema, no murmur and normal peripheral pulses
Pulmonary Exam
Pulmonary Exam: lungs clear, no respiratory distress, no rales, no crackles, no rhonchi, no stridor, no wheezing and no cough
Gastrointestinal Exam
Gastrointestinal Exam: normal bowel sounds, non tender, soft, no pulsatile mass and non distended
Neurological Exam
Neurological Exam: alert and no motor deficits
Musculoskeletal Exam
Musculoskeletal Exam: other (no appreciable deformity of the lower extremities, no ttp to the right hip, (+)ttp to left hip, 2+ DP pulses bilaterally, SILT)
Skin Exam
Skin Exam: normal color, warm/dry, no rash and no petechia
Psychiatric Exam
Psychiatric Exam: labile
Course
Orders/Labs/Results
Orders:
Orders
04/13/25 17:46
Hip, Right 2-3 Views [CR Hip - RT w/wo Pel 2-3 Vw*] Urgent
Comment: fall
Reason For Exam: fall
Include a pelvis x-ray?: Yes
04/13/25 17:59
Add On- LAB Urgent
Tests Added?: alcohol level
04/13/25 18:22
Hip, Left 2-3 Views [CR Hip - LT w/wo Pel 2-3 Vw*] Urgent
Comment:
Reason For Exam: left hip pain s/p fall
Include a pelvis x-ray?: No
04/13/25 19:08
Alcohol Urgent
Complete Blood Count/With Diff Urgent
Comprehensive Metabolic Panel Urgent
04/13/25 19:59
Oxycodone/Acetaminophen [Percocet 5/325] 1 tablet PO NOW STA
04/13/25 20:11
CT Pelvis W/o Iv Contrast Urgent
Comment:
Reason For Exam: bilateral hip pain s/p fall, concern for occult fx
04/13/25 22:04
Clonidine [Catapres] 0.2 mg PO NOW STA
Metoprolol [Lopressor] 200 mg PO NOW STA
Abnormal Lab Results
04/13/25
19:08
RBC 3.57 L 10^6/uL
(4.20-5.40)
MCV 106.7 H fL
(81.0-99.0)
MCH 37.3 H pg
(27.0-31.0)
BUN 6 L mg/dl
(7-17)
04/13/25 19:08
04/13/25 19:08
Vital Signs
Initial and Last Documented VS:
Initial Vital Signs
Temp Pulse Resp BP Pulse Ox
97.9 F 93 16 127/76 96
04/13/25 17:30 04/13/25 17:30 04/13/25 17:30 04/13/25 17:30 04/13/25 17:30
Last Documented Vital Signs
Temp Pulse Resp BP Pulse Ox
97.9 F 104 25 141/92 98
04/13/25 17:30 04/13/25 22:20 04/13/25 18:15 04/13/25 22:20 04/13/25 21:02
*Pulse Oximetry
SaO2: 98
Oxygen Mode of Delivery: Room air
Update Note
Update Note:
Patient is a 70-year-old female with multiple comorbidities including alcohol use disorder and benzodiazepine use disorder who presents to the emergency department complaining of right hip pain following a fall a week ago. Patient admits that she
drank a bottle of wine today to cope with the pain. On arrival, patient's vital signs are stable, she is afebrile. On examination, the patient does appear clinically intoxicated but is in no acute distress, she endorses pain over the right hip but
actually has no tenderness to palpation to the right hip, no pain with range of motion of the right hip but does have tenderness palpation of the left hip along with pain with range of motion, she is neuro vastly intact. Labs were obtained and are
nonactionable, alcohol level was significantly elevated at 283. Radiographs of the hips were obtained and demonstrate no acute fracture or dislocation. Case was discussed with ED attending, will obtain CT of the pelvis to rule out occult hip
fracture. If negative, will ambulate the patient and if patient is able to ambulate, anticipate that she will be able to be discharged home.
22:48 - On reevaluation, patient seems much more sober. She is answering questions appropriately and is cooperative. She states that she is due for her clonidine 0.2 mg and her metoprolol tartrate 200 mg. Will provide.
ED Attending Note
-
Portions of this chart may have been created with voice recognition software.� Occasional wrong word or��sound alike� substitutions may have occurred due to the inherent limitations of voice recognition software.
Discharge Plan
Departure
Prescriptions:
No Action
clonidine HCl 0.2 MG tablet
0.2 mg PO TID
Patient Comments:
pt states she in non compliant with taking medication
anastrozole 1 mg tablet
1 mg PO DAILY
metoprolol tartrate 100 mg Tablet
200 mg PO BID Qty: 30 0RF
Rx Instructions:
new dose
chlordiazepoxide HCl 5 mg Capsule
5 mg PO TID
Patient Comments:
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
thiamine HCl (vitamin B1) 100 mg Tablet
100 mg PO BID Qty: 0 0RF
cyanocobalamin (vitamin B-12) 1,000 mcg capsule
1,000 mcg PO DAILY Qty: 14 0RF
Referrals:
UNKNOWN - PT DOES,NOT KNOW [Family Provider]
Interventions
Interventions:
*Risk Screen - Suicide Last Done: 04/13/25 17:30
*General Assessment Last Done: 04/13/25 17:30
*Neglect/Abuse Screening Last Done: 04/13/25 17:41
*ED- Fall Risk Assessment Last Done: 04/13/25 17:41
*ED COVID-19 Vaccine History Last Done: 04/13/25 17:41
ED-Musculoskeletal Assessment Last Done: 04/13/25 18:24
ED- Neurological Assessment Last Done: 04/13/25 18:24
ED-Skin Assessment Last Done: 04/13/25 18:24
Discharge Date and Time
Print Language: OCCITAN
[2025-04-13] MEDS: LOPRESSOR 200 MG PO (22:18)
[2025-04-13 22:19] VITALS: BP 141/92
[2025-04-13] MEDS: CATAPRES 0.2 MG PO (22:20)
[2025-04-14 00:01] VITALS: BP 106/77
[2025-04-14 01:00] VITALS: BP 101/71
[2025-04-14 01:17] VITALS: BP 111/75
== END 2025-04-14 06:39 | disposition home or self-care (01) ==
LOC: EMR 17:29
PROVIDERS: EMERGENCY PHYSICIAN Emergency Medicine
DX: M25.551 Pain in right hip (principal); M25.552 Pain in left hip; F10.129 Alcohol abuse with intoxication, unspecified; I48.0 Paroxysmal atrial fibrillation; I25.10 Atherosclerotic heart disease of native coronary artery without angina pectoris; I10 Essential (primary) hypertension; F41.9 Anxiety disorder, unspecified; Z82.49 Family history of ischemic heart disease and other diseases of the circulatory system; Z85.828 Personal history of other malignant neoplasm of skin; Z90.10 Acquired absence of unspecified breast and nipple; Z90.49 Acquired absence of other specified parts of digestive tract
CPT/HCPCS: 99284; 72192; 73502; 80053; 82077; 85025